=== PATIENT | female | born 1975 | race Caucasian/White ===

== ENCOUNTER → 2020-10-03 09:22 | Outpatient (BNVA) | payer BC, SELFPAY | PROVIDERS: PCP Internal Medicine; Referring Provider Internal Medicine; Visit Provider Hospitalist | DX: Z76.89 Persons encountering health services in other specified circumstances (principal) ==

== ENCOUNTER → 2021-03-01 09:47 | Outpatient (BNVA) | payer BC, SELFPAY | PROVIDERS: PCP Internal Medicine; Visit Provider Hospitalist ==

== ENCOUNTER 2021-04-21 13:12 | Outpatient (REF) | payer BC, SELFPAY ==
[2021-04-21 14:24] LABS: MANUAL DIFF FLAG NO
[2021-04-21 14:31] LABS: Basophils Percent Auto 0.5 % (0-2); Eosinophils Absolute Auto 0.2 X10*3/uL (0.0-0.4); Eosinophils Percent Auto 2.4 % (0-4); Hematocrit 37.9 % (37-47); Hemoglobin 12.8 g/dl (12.0-16.0); Imm Gran Abs Auto 0.01 X10*3/uL (0.00-0.03); Imm Gran Pct Auto 0.2 % (0.0-0.4); Lymphocytes Absolute Auto 1.6 X10*3/uL (1.2-4.9); Lymphocytes Percent Auto 25.3 % (20-40); Mean Corpuscular HGB Conc 33.8 g/dl (31.0-35.0); Mean Corpuscular Hemoglobin 30.3 pg (27.0-33.0); Mean Corpuscular Volume 89.6 fL (80-98); Mean Platelet Volume 9.4 fL (9.4-12.3); Monocytes Absolute Auto 0.5 X10*3/uL (0.1-1.2); Monocytes Percent Auto 8.2 % (2-11); Neutrophils Absolute Auto 4.1 X10*3/uL (2.0-8.3); Neutrophils Percent Auto 63.4 % (45-73); Platelet Count 310 X10*3/uL (160-400); Red Blood Count 4.23 X10*6/uL (4.20-5.50); Red Cell Distribution Width 12.8 % (11.0-16.0); White Blood Count 6.4 X10*3/uL (4.8-10.8)
[2021-04-21 14:49] LABS: Anion Gap 15 (12-20); Blood Urea Nitrogen 14 mg/dL (9-16); Carbon Dioxide 24 mmol/L (22-29); Chloride 104 mmol/L (96-108); Estimated Glomerular Filt Rate > 60; Glucose Random 99 mg/dL (60-115); Potassium 3.7 mmol/L (3.3-5.1); Sodium 139 mmol/L (135-145)
[2021-04-21 15:16] LABS: Erythrocyte Sedimentation Rate 6 MM/HR (0-20)
[2021-04-26 04:26] LABS: Immunoglobulin E 962 kU/L (<OR=114)
== END 2021-04-21 13:13 | disposition home or self-care (01) ==
LOC: HO.LAB 13:12
PROVIDERS: PCP Internal Medicine; Visit Provider Hospitalist
DX: J45.50 Severe persistent asthma, uncomplicated (principal); R91.1 Solitary pulmonary nodule; L40.9 Psoriasis, unspecified; D84.9 Immunodeficiency, unspecified
CPT/HCPCS: 36415; 80048; 82785; 85025; 85652; 86769

== ENCOUNTER → 2021-07-10 15:34 | Outpatient (BNVA) | payer BC, SELFPAY | PROVIDERS: PCP Internal Medicine; Visit Provider Hospitalist ==

== ENCOUNTER → 2021-11-06 15:38 | Outpatient (BNVA) | payer BC, SELFPAY | PROVIDERS: PCP Internal Medicine; Visit Provider Hospitalist ==

== ENCOUNTER 2021-12-29 15:56 | Outpatient (REF) | payer BC, SELFPAY ==
--- NOTE | 2021-12-29 17:12 | PFT_ITS ---
Forced vital capacity 98%, FEV1 95%, FEV1/FVC ratio 77, RCL19-30 is 76%, and MVV 93%. All these values are normal, post bronchodilator therapy no significant change. Total lung capacity 93%. Residual volume is 73%. Diffusion capacity 89%. CONCLUSION: Normal pulmonary function tests. No evidence of obstructive or restrictive pulmonary disorder and no significant response to bronchodilator therapy. MD CARMELO Bassett/CRISSY / [id number]
== END 2021-12-29 15:57 | disposition home or self-care (01) ==
LOC: HO.RESP 15:56
PROVIDERS: PCP Internal Medicine; Visit Provider Hospitalist
DX: R06.00 Dyspnea, unspecified (principal); J45.50 Severe persistent asthma, uncomplicated
CPT/HCPCS: 94060; 94727; 94729

== ENCOUNTER → 2022-01-18 15:53 | Outpatient (BNVA) | payer BC, SELFPAY | PROVIDERS: PCP Internal Medicine; Visit Provider Hospitalist | DX: Z13.89 Encounter for screening for other disorder (principal) ==

== ENCOUNTER → 2023-04-22 14:32 | Outpatient (BNVA) | payer BC, SELFPAY | PROVIDERS: PCP Internal Medicine; Visit Provider Hospitalist ==

== ENCOUNTER 2024-05-18 14:59 | Outpatient (AMB) | payer BC, SELFPAY ==
--- NOTE | 2024-05-18 15:22 | MHC.OFFVIS ---
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 She also has psoriatic arthritis. She has been on multiple medications including methotrexate. But, then decided to come off it due to the abnormal findings in her lungs and also with the family history of pulmonary fibrosis. She continues to have dyspnea on exertion. Moderate in amount. She went to see her primary care doctor and added a long-acting muscarinic antagonist. This has not been helpful yet. She has also been complaining of pleuritic chest discomfort primarily in the left chest area. It is pleuritic in nature moderate in amount. She denies any blood clots history alleged trauma to [place]. Denies any swelling of the legs. We did review her CT scan of the chest that she had in June at [facility] and with his compared to her CT scan from) from 6 months prior. No significant changes in the pulmonary nodule or in the sub solid nodular density found in the left upper lobe. She also had blood work done with a significantly elevated IgE level of about 900. She is not aware of any significant allergy symptoms. However, this may be causing intermittent asthma. 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 She does episodes of exacerbations. She does have a history of psoriatic arthritis. She may be a good candidate for PD4 inhibitor. Recently she did have an echocardiogram which is reassuring with normal RV function and normal PA pressures. Minimal degree of diastolic dysfunction. 10/03/2020 the patient has a telephone visit. She continues to have some difficulty with her breathing and chest tightness. Does not feel like she is getting any significant improvement from the Xolair. Her IgE had been elevated in the past. I do think Dupixent may be a good option for her specially when she can just herself at home and minimize her exposures to COVID-19. She will talk to her stone rigger about this. In the meantime she has underlying pulmonary nodules. We did request a CT scan of the chest but it was denied from her insurance company because was requested to [place]. Therefore will request another CT scan for 3 months from now. Hopefully by then the pandemic would be better. In the meantime she is going to continue with current respiratory regimen. 03/01/2021 the patient has a telephone visit. Since we last spoke the patient has been having for worsening respiratory symptoms consistent with her asthma. She subsequently stop the Xolair because the monthly Xolair did not seem to be effective for her. In addition to that she was approved for Dupixent. She did get the 1st loading dose of Dupixent and she was very hopeful. But, because she has been on other immunosuppressive agents she did back some was stop. Now, her allergy office is doing additional prior approval stay to have her go back on Dupixent. She continues on the Symbicort. In addition to that she has been using her allergy medication. She has required her rescue inhaler regularly almost daily. At this point will try to optimize her respiratory therapy placing her breztri and also will plan to repeat blood work. The patient has gained some weight over this pandemic year and I did explain to her that if she cannot go back on the Dupixent then we should try to maximize her Xolair and hopefully in that case use it every 2 weeks instead of her before. She did have a CT scan of the chest and that we personally reviewed. Her lungs appear to be healthy appearing. She does have a small pulmonary nodule that is calcified in the right upper lung zone. Otherwise she has no other abnormalities noted which is reassuring. Slight dilation and thickening of the airways suggesting some degree of bronchitis. But very minimal. She does have a history of kidney stones and she does have bilateral nephrolithiasis noted. She also has a kidney cyst. Explained to her that CT scan is not a good way to visualize the cysts on her kidneys she should follow up with her specialists regarding a renal ultrasound. 11/06/2021 the patient is here for a pulmonary follow-up visit. Overall the patient has been doing a lot better. 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 She had to call the crisis center because of significant anxiety. She was evaluated and treated both with psychotherapy in medications. The patient finished a partial hospitalization and responded very well to therapy. 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 We did talk about the respirator that she bought. the patient continues to Symbicort. She was started on Spiriva and seems to be tolerating it much better. She continues on Dupixent every 2 weeks. The area switch to getting the injections are painful. However, it is providing some relief. Her psoriasis is also better. 04/22/2023 the patient is here for pulmonary follow-up visit. The patient overall has been doing well. She has not had any recent flare-ups from the asthma. 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 She has been still protecting herself with a mask covering. The patient has not had to use her rescue inhaler. She seems to have responded very well to the Dupixent injections. No need for her rescue inhaler and she continues use her maintenance inhalers as prescribed which include Spiriva and Symbicort. She is in immunosuppressant therapy for her other medical elements. She is up-to-date with her vaccines. Will follow-up in a year's time unless any new issues arise. 05/18/2024 the patient is here for a pulmonary follow-up visit. The patient still complaining of dyspnea on exertion. Although does not feel like his her asthma. she does stay active she goes hiking. A lot of times when she is going up an incline. Moderate severity. She was evaluated from Cardiology and she had an echocardiogram back in July 13 demonstrating a ASD. Was small. I did have a rvjhn-uv-cugt shunt. She does have some minimal clubbing. No evidence of any hypoxia when ambulating. She is going to have a repeat echocardiogram ordered by her primary care doctor. She is also having daytime drowsiness. There is a question of sleep apnea. She was order a sleep study which will be done at [facility] as well. On exam she does have some minimal wheezing. We did talk about the importance of using her respiratory inhalers. Will going to go ahead and maximize her respiratory therapy from Symbicort to breztri. Will also request a cardiopulmonary exercise tolerance test to better address her dyspnea symptoms specially with his cardiac issue going on. Will plan to do that at [facility]. In the meantime we are going to maximize respiratory therapy and she will follow-up with her primary care doctor. I did advise her to make sure she follows up with Cardiology specially with her abnormal findings. [facility] Medical History (Updated 05/18/24 @ 15:42 by Holden Antoine MD) ASD (atrial septal defect) Psoriatic arthritis Immunocompromised patient Pulmonary nodule Psoriasis Asthma Social History (Updated 11/06/21 @ 15:56 by DARRELL Jc) Patient Tobacco Use Status: Former Tobacco user Tobacco use type: Cigarette Years Smoked: 20 years Review of Systems Const Denies fever(s) and Denies night sweats Eyes Denies change in vision ENT Denies change in voice, Reports dizziness, Denies lip swelling, Denies mouth pain, Reports nasal congestion, Reports nasal discharge and Denies tongue swelling Card Denies chest pain, Denies dyspnea and Reports dyspnea on exertion Resp Reports cough, Denies dyspnea, Reports dyspnea on exertion and Denies wheezing GI Denies abdominal pain Musc Denies no additional complaints, Reports back pain and Reports myalgias Neuro Denies Neuro-related abnormal movements and Reports dizziness Psych Denies no additional complaints Rodolfo/Lymph Denies easy bleeding and Denies lymphadenopathy Aller/Immun Denies lip swelling, Denies tongue swelling and Denies wheezing Physical Exam Vital Signs: Last Vital Signs Pulse 61 05/18/24 15:24 Pulse Ox 97 05/18/24 15:24 Oxygen Delivery Method Room Air 05/18/24 15:24 BMI result Body Mass Index 28.4 Const General: alert Neck Neck: Yes normal visual inspection, Yes full ROM and Yes no lymphadenopathy Chest Chest palpation & inspection: normal inspection of the chest Resp Auscultation: no rales, no rhonchi, wheezes and diminished lung sounds Cardio Rate: regular rate Rhythm: regular rhythm Heart sounds: S1 normal heart sound present and S2 normal heart sound present GI Palpation (GI): Soft to palpation and nontender Auscultation: normal bowel sounds Skin General skin exam: rashes and/or lesions noted Extrem General: Yes clubbing, No cyanosis and No edema Assessment & Plan Assessment & Plan (1) Pulmonary nodule: Code(s): R91.1 - Solitary pulmonary nodule Category: Medical (2) Asthma: Code(s): J45.909 - Unspecified asthma, uncomplicated Category: Medical Qualifiers: Asthma complication type: uncomplicated Asthma persistence: persistent Asthma severity: moderate Qualified Code(s): J45.40 - Moderate persistent asthma, uncomplicated (3) ASD (atrial septal defect): Code(s): Q21.10 - Atrial septal defect, unspecified Category: Medical Plan stop Symbicort start Breztri stopped Dupixent ERVIN as needed CPET at [facility] F/U 4-6 months Orders: Orders CA cardiopulmonary stress test Today R06.00 - Dyspnea, unspecified Medications: New irylrxorwp-tiyyzbjg-afkruafslr 160-9-4.8 mcg/actuation (Breztri Aerosphere) 2 inhalations inhalation BID 30 days 10.7 grams 11RF Coding Level of Care Code Est Pt Level 4 (55079) Diagnoses Pulmonary nodule R91.1 Moderate persistent asthma without complication J45.40 Asthma complication type: uncomplicated Asthma persistence: persistent Asthma severity: moderate ASD (atrial septal defect) Q21.10 Time Spent (min) 17
[2024-05-18 15:24] VITALS: PULSE 61; O2SAT 97; BMI 28.4
== END 2024-05-18 16:01 | disposition home or self-care (01) ==
PROVIDERS: PCP Internal Medicine; Visit Provider Hospitalist
DX: R91.1 Solitary pulmonary nodule (principal); J45.40 Moderate persistent asthma, uncomplicated; Q21.10 Atrial septal defect, unspecified
CPT/HCPCS: 99214

== ENCOUNTER → 2024-05-18 14:59 | Outpatient (BNVA) | payer BC, SELFPAY | PROVIDERS: PCP Internal Medicine; Visit Provider Hospitalist ==

== ENCOUNTER 2024-11-02 15:40 | Outpatient (AMB) | payer BC, SELFPAY ==
[2024-11-02 15:42] VITALS: BP 118/78; PULSE 58; O2SAT 99; BMI 34.4
--- NOTE | 2024-11-02 15:42 | A.OFFVIS_ITS ---
Vital Signs 11/02/24 15:42 Height 5 ft 4 in Weight 200 lb 9.93 oz BMI 34.4 BP 118/78 Blood Pressure Location Rt brachial Position Sitting Pulse 58 Pulse Source Pulse Oximeter Pulse Oximetry (%) 99 Oxygen Delivery Method Room Air Intake Visit Reasons: copd Allergies No Known Allergies Allergy (Verified 11/02/24 15:44) HPI Comments Details: The patient is a 49 y/o womanwith a history of asthma in addition to pulmonary nodules. She also has psoriatic arthritis. She has been on multiple medications including methotrexate. But, then decided to come off it due to the abnormal findings in her lungs and also with the family history of pulmonary fibrosis. She continues to have dyspnea on exertion. Moderate in amount. She went to see her primary care doctor and added a long-acting muscarinic antagonist. This has not been helpful yet. She has also been complaining of pleuritic chest discomfort primarily in the left chest area. It is pleuritic in nature moderate in amount. She denies any blood clots history alleged trauma to [place]. Denies any swelling of the legs. We did review her CT scan of the chest that she had in June at [facility] and with his compared to her CT scan from) from 6 months prior. No significant changes in the pulmonary nodule or in the sub solid nodular density found in the left upper lobe. She also had blood work done with a significantly elevated IgE level of about 900. She is not aware of any significant allergy symptoms. However, this may be causing intermittent asthma. 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 She does episodes of exacerbations. She does have a history of psoriatic arthritis. She may be a good candidate for PD4 inhibitor. Recently she did have an echocardiogram which is reassuring with normal RV function and normal PA pressures. Minimal degree of diastolic dysfunction. 10/03/2020 the patient has a telephone visit. She continues to have some difficulty with her breathing and chest tightness. Does not feel like she is getting any significant improvement from the Xolair. Her IgE had been elevated in the past. I do think Dupixent may be a good option for her specially when she can just herself at home and minimize her exposures to COVID-19. 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 In the meantime she has underlying pulmonary nodules. We did request a CT scan of the chest but it was denied from her insurance company because was requested to [place]. Therefore will request another CT scan for 3 months from now. Hopefully by then the pandemic would be better. In the meantime she is going to continue with current respiratory regimen. 03/01/2021 the patient has a telephone visit. Since we last spoke the patient has been having for worsening respiratory symptoms consistent with her asthma. She subsequently stop the Xolair because the monthly Xolair did not seem to be effective for her. In addition to that she was approved for Dupixent. She did get the 1st loading dose of Dupixent and she was very hopeful. But, because she has been on other immunosuppressive agents she did back some was stop. Now, her allergy office is doing additional prior approval stay to have her go back on Dupixent. She continues on the Symbicort. In addition to that she has been using her allergy medication. She has required her rescue inhaler regularly almost daily. At this point will try to optimize her respiratory therapy placing her breztri and also will plan to repeat blood work. The patient has gained some weight over this pandemic year and I did explain to her that if she cannot go back on the Dupixent then we should try to maximize her Xolair and hopefully in that case use it every 2 weeks instead of her before. She did have a CT scan of the chest and that we personally reviewed. Her lungs appear to be healthy appearing. She does have a small pulmonary nodule that is calcified in the right upper lung zone. Otherwise she has no other abnormalities noted which is reassuring. Slight dilation and thickening of the airways suggesting some degree of bronchitis. But very minimal. She does have a history of kidney stones and she does have bilateral nephrolithiasis noted. She also has a kidney cyst. Explained to her that CT scan is not a good way to visualize the cysts on her kidneys she should follow up with her specialists regarding a renal ultrasound. 11/06/2021 the patient is here for a pulmonary follow-up visit. Overall the patient has been doing a lot better. 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 She had to call the crisis center because of significant anxiety. She was evaluated and treated both with psychotherapy in medications. The patient finished a partial hospitalization and responded very well to therapy. 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 We did talk about the respirator that she bought. the patient co ntinues to Symbicort. She was started on Spiriva and seems to be tolerating it much better. She continues on Dupixent every 2 weeks. The area switch to getting the injections are painful. However, it is providing some relief. Her psoriasis is also better. 04/22/2023 the patient is here for pulmonary follow-up visit. The patient overall has been doing well. She has not had any recent flare-ups from the asthma. 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 She has been still protecting herself with a mask covering. The patient has not had to use her rescue inhaler. She seems to have responded very well to the Dupixent injections. No need for her rescue inhaler and she continues use her maintenance inhalers as prescribed which include Spiriva and Symbicort. She is in immunosuppressant therapy for her other medical elements. She is up-to-date with her vaccines. Will follow-up in a year's time unless any new issues arise. 05/18/2024 the patient is here for a pulmonary follow-up visit. The patient still complaining of dyspnea on exertion. Although does not feel like his her asthma. she does stay active she goes hiking. A lot of times when she is going up an incline. Moderate severity. She was evaluated from Cardiology and she had an echocardiogram back in July 13 demonstrating a ASD. Was small. I did have a atklc-ee-nphh shunt. She does have some minimal clubbing. No evidence of any hypoxia when ambulating. She is going to have a repeat echocardiogram ordered by her primary care doctor. She is also having daytime drowsiness. There is a question of sleep apnea. She was order a sleep study which will be done at [facility] as well. On exam she does have some minimal wheezing. We did talk about the importance of using her respiratory inhalers. Will going to go ahead and maximize her respiratory therapy from Symbicort to breztri. Will also request a cardiopulmonary exercise tolerance test to better address her dyspnea symptoms specially with his cardiac issue going on. Will plan to do that at [facility]. In the meantime we are going to maximize respiratory therapy and she will follow-up with her primary care doctor. I did advise her to make sure she follows up with Cardiology specially with her abnormal findings. 11/02/2024 the patient is here for a pulmonary follow-up visit. She continues to have daytime drowsiness. Her [place] score is still elevated 09/13. She did have sleep study over the summer demonstrating mild sleep apnea. In view of her cardiovascular risk factors and her daytime drowsiness the patient needs to start CPAP therapy at this time. Will request a CPAP to be provided by a local [employer] company, [employer]. In the meantime she also did follow- up with Cardiology and she had closure of her PFO. After she started developing some palpitations and some bradycardia. Cardiology is following closely. She did have a repeat echocardiogram with a bubble study and did demonstrate some bubbles getting throat with Valsalva with not at rest. She will talk to Cardiology about the meaning of this test and the results. In the meantime she was supposed to undergo a cardiopulmonary exercise tolerance test. However, she was sick and she was not able to completed. She had to reschedule. At this point though because she is having active cardiac issues and she needs to start CPAP I will have her focus on that and then when she returns we can look into repeating her CPAP study done. She will continue to use her rescue inhaler as needed. She could not get the Breztri covered. I will give her a prescription for airsupra that she can use as needed [facility] Medical History (Updated 11/02/24 @ 21:39 by Holden Antoine MD) ASD (atrial septal defect) Psoriatic arthritis Immunocompromised patient Pulmonary nodule Psoriasis Asthma Social History Patient Tobacco Use Status: Former Tobacco user Tobacco use type: Cigarette Years Smoked: 20 years Review of Systems Const Reports daytime sleepiness, Denies fever(s), Reports snoring and Reports weight gain Eyes Denies change in vision ENT Denies change in voice, Reports dizziness, Denies lip swelling, Denies mouth pain, Reports nasal congestion, Reports nasal discharge and Denies tongue swelling Card Denies chest pain, Reports palpitations, Denies dyspnea and Reports dyspnea on exertion Resp Reports cough, Denies dyspnea, Reports dyspnea on exertion, Reports snoring and Denies wheezing GI Denies abdominal pain Musc Denies no additional complaints, Reports back pain and Reports myalgias Neuro Denies Neuro-related abnormal movements and Reports dizziness Psych Denies no additional complaints Endo Reports palpitations Rodolfo/Lymph Denies easy bleeding and Denies lymphadenopathy Aller/Immun Denies lip swelling, Denies tongue swelling and Denies wheezing Physical Exam Vital Signs: Last Vital Signs Pulse 58 11/02/24 15:42 BP 118/78 11/02/24 15:42 Pulse Ox 99 11/02/24 15:42 Oxygen Delivery Method Room Air 11/02/24 15:42 BMI result Body Mass Index 34.4 Const General: alert Neck Neck: Yes normal visual inspection, Yes full ROM and Yes no lymphadenopathy Chest Chest palpation & inspection: normal inspection of the chest Resp Auscultation: no rales, no rhonchi and diminished lung sounds Cardio Rate: regular rate Rhythm: regular rhythm Heart sounds: S1 normal heart sound present and S2 normal heart sound present GI Palpation (GI): Soft to palpation and nontender Auscultation: normal bowel sounds Skin General skin exam: rashes and/or lesions noted Extrem General: Yes clubbing, No cyanosis and No edema Assessment & Plan Assessment & Plan (1) Pulmonary nodule: Code(s): R91.1 - Solitary pulmonary nodule Category: Medical (2) Asthma: Code(s): J45.909 - Unspecified asthma, uncomplicated Category: Medical Qualifiers: Asthma complication type: uncomplicated Asthma persistence: persistent Asthma severity: moderate Qualified Code(s): J45.40 - Moderate persistent asthma, uncomplicated (3) ASD (atrial septal defect): Code(s): Q21.10 - Atrial septal defect, unspecified Category: Medical (4) HARLEEN (obstructive sleep apnea): Code(s): G47.33 - Obstructive sleep apnea (adult) (pediatric) Category: Medical Plan stopped Symbicort start Airsupra stopped Dupixent ERVIN as needed start APAP therapy for HARLEEN F/U with cardiology with palpitations CPET at [facility] once better F/U 3-4 months Medications: New benzonatate 200 mg PO BID PRN 60 caps 0RF cough 30 days albuterol-budesonide 90-80 mcg/actuation (Airsupra) 2 inhalations inhalation BID PRN 10.7 grams 5RF shortness of breath 30 days Coding Level of Care Code Est Pt Level 4 (15222) Diagnoses Pulmonary nodule R91.1 Moderate persistent asthma without complication J45.40 Asthma complication type: uncomplicated Asthma persistence: persistent Asthma severity: moderate ASD (atrial septal defect) Q21.10 HARLEEN (obstructive sleep apnea) G47.33 Time Spent (min) 17
--- OUTSIDE RECORDS SUMMARY | 2024-11-02 19:40 | XMS_ITS | Data Portability ---
Author Organization [place] - [facility],, LOUANN DONNELLY MD Address [address] [address] Care Team Providers Care News Assistant Name Role Phone FLORIAN THOMAS Primary Care Provider Assessment No assessment recorded. Plan of Treatment Reminders Order Date Submit Date Provider Last Modified By Organization Details Last Modified Time Details Appointments ANNUAL EXAM 2024 03:20P M Louann Donnelly MD Not available Not available Not available Lab pap test, thinprep , cervical 2018 019 [email or web address] [facility], Cytopathology Service, [address] [place], [address], 08/19/2019 07:33:56 fecal occult blood, stool 2018 019 MICHAELA In-Office Order, Internal Use Only DO Not Attach Compendium DO Not Attach Compendium, Do Not Delete/merge, [id number] 08/11/2019 16:14:35 pap test, thinprep , cervical 2020 021 [email or web address] [facility], Cytopathology Service, [address] [place], [address], 03/21/2021 07:34:46 Chlamydi a trachoma tis+Neis seria gonorrho eae DNA, unspecif ied specimen 2021 022 [email or web address] [facility], [address] [place], [address], 01/23/2022 07:43:14 pap test, thinprep , cervical 2021 022 [email or web address] [facility], Cytopathology Service, [address] [place], [address], 04/27/2022 08:24:11 fecal occult blood, stool 2021 022 [email or web address] 1 In-Office Order, Internal Use Only DO Not Attach Compendium DO Not Attach Compendium, Do Not Delete/merge, [id number] 04/12/2022 15:56:12 urinalys is, dipstick 2022 023 [email or web address] 1 In-Office Order, Internal Use Only DO Not Attach Compendium DO Not Attach Compendium, Do Not Delete/merge, [id number] 08/09/2023 15:54:39 culture, urine 2022 023 [facility], [address] [place], [address], 08/11/2023 06:30:12 pap test, thinprep , cervical 2022 023 [email or web address] [facility], [address] [place], [address], 08/23/2023 07:37:57 fecal occult blood, stool 2022 023 [email or web address] 1 In-Office Order, Internal Use Only DO Not Attach Compendium DO Not Attach Compendium, Do Not Delete/merge, [id number] 08/09/2023 15:54:41 Referral None recorded . Procedures None recorded . Surgeries None recorded . Imaging MAMMO, screenin g, digital, bilatera l 2018 019 [email or web address] [facility] ([facility]), [address] [place], [address], 07/31/2021 07:16:46 MAMMO, screenin g, digital, bilatera l 2020 021 [facility] ([facility]), [address] [place], [address], 03/06/2022 08:21:42 MAMMO, screenin g, digital, bilatera l 2021 022 [facility]), [address] [place], [address], 03/07/2023 09:03:30 MAMMO, screenin g, digital, bilatera l - Breast Aspirati on and/or Biopsy if needed 2022 023 [facility]), [address] [place], [address], 06/03/2024 15:57:28 Medication Orders ondanset nithin 8 mg disinteg rating tablet 2021 022 [email or web address] 1 [id number], [address] [place], [address], 01/16/2022 15:28:00 Patient TargetsNo targets recorded. Patient Instructions Encounter Date Encounter Id Patient Instructions Last Modified By Organization Details Last Modified Time 08/11/2019 [id number] She is here for annual exam, is using a walker for her psoriatic arthritis, she may also be developing idiopathic pulmonary fibrosis. She went off methotrexate because she was worried it might be damaging her lungs. 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 Menses are regular/heavy, has vasectomy. Note from 2018: She is here for annual exam, is doing well. 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 She is wheelchair confined due to her psoriatic arthropathy. She went off Embrel and changed to a pill, but it is not working well for her yet. She failed Lucy also. She may consider Remicade. She appears to be doing well. She is advised to get 1500 mg of calcium daily into her diet and supplements combined. There is a health benefit with adequate vitamin D supplementation to at least 400 units daily, daily aerobic exercise of 30 minutes, and stress reduction. Monthly self breast exam was taught, and stressed, and is advised to call if she discovers any new mass in the breast. Seat belt use for herself and passengers are advised. There are significant health benefits of becoming and remainig fit, with an optimal BMI. There is a potential reduction in chronic discomfort, diminished risks of hypertension, diabetes, and heart disease with the proper weight management. With a recommended BMI there can be improved mobility as she ages. Strategies to reach and maintain her target weight were discussed in detail. 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 Note from 2019: She is here for annual exam, is using a walker for her psoriatic arthritis, she may also be developing idiopathic pulmonary fibrosis. She went off methotrexate because she was worried it might be damaging her lungs. 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 Menses are regular/heavy, has vasectomy. She appears to be doing well. She is advised to get 1500 mg of calcium daily into her diet and supplements combined. We discussed the benefits of adequate vitamin D supplementation to at least 400 units daily, daily aerobic exercise of 30 minutes, and stress reduction. Monthly self breast exam was taught, and stressed, and is advised to call if she discovers any new mass in the breast. Not available 03/13/2021 09:19:09 01/16/2022 [id number] nausea and vomit ing: care instructions Not available 01/16/2022 14:20:42 diverticulitis: care instructions Not available 01/16/2022 15:06:50 learning about diverticulosis and diverticulitis Not available 01/16/2022 15:06:50 She is here for ED follow up. She went to the [facility] ED yesterday due to right upper flank pain. which had been ongoing for 4 weeks. She had gone to a walk-in clinic last week, was diagnosed with a UTI, it cultured E Coli 50 - 100K E Coli, treated with Bactrim for 5 days, the culture was sensitive to the Bactrim. Her pain did not improve with the treatment. She has also had profound nausea over these 4 weeks,, and has been feeling under the weather. She had hoped she would improve after the Bactrim, but she did not. Yesterday at the ED, A non-contrast CT was done. It showed bilateral non-obstructing stones up to 6 mm. No hydronephrosis. No suspicious masses. They noted the diagnosis was related to the renal stones, and felt it would pass spontaneously. they sent her home. Her test, labs, and CBC were fine. She is immunocompromised due to her Cosentyx. 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 She is here because we could fit her in today for a same day visit. She cannot get in to see her urologist until 01/24/22. A GC/chlamydia genprobe is taken, to be complete, though she has no evidence of PID on exam or CT scan. The ovaries on CT were not abnormal. It does not appear that she has a director trust issue as the etiology of her nausea and pain for 4 weeks. However, she has a pelvic exam consistent with possible diverticulitis. She did have diverticulosis diagnosed previously, she notes. Her CT did not have contrast, I'm not in that field so do not know if a negative CT without contrast is enough to rule out diverticulitis. She is advised to contact her urologist and try to move up her appointment. Also she will contact her PCP to see if they can get her in. She is definitely not herself. She never looks this unkempt, and fatigued. It is important to get to the bottom of her diagnosis and initiate proper treatment, especially in light of her being immunosupressed. She understands and agrees. In the meanwhile I offered a pelvic sonogram just to look better at the ovaries but she declines as the CT was fine. I will call in rx for Lyla DUGAN just to help with her intractable nausea. I cannot explain the right flank pain, however she may have diverticulitis by her history and exam. Face to face discussion 60 minutes Not available 01/16/2022 15:28:15 04/12/2022 [id number] learning about healthy weight Not available 04/12/2022 15:56:12 She is here for annual exam, is doing well. Menses every 1 to 4 months, no significant vasomotor symptoms. s/p vasectomy. 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 ___ She appears to be doing well. She is advised to get 1500 mg of calcium daily into her diet and supplements combined. We discussed the benefits of adequate vitamin D supplementation to at least 400 units daily, daily aerobic exercise of 30 minutes, and stress reduction. Monthly self breast exam was taught, and stressed, and is advised to call if she discovers any new mass in the breast. Not available 04/12/2022 15:58:13 08/09/2023 [id number] urinary tract infection in women information Not available 08/09/2023 15:54:39 learning about healthy weight Not available 08/09/2023 15:54:39 She is here for annual, doing well, menses are every few months, only mild vasomotor symptoms. Her psoriatic arthritis is under control at this time. She is walking without a walker. She had been in a wheelchair in 2017 ! vasectomy. She haw mild dysuria. Note from 2021: She is here for annual exam, is doing well. Menses every 1 to 4 months, no significant vasomotor symptoms. s/p vasectomy. 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 She appears to be doing well. Urine dip not suggestive of UTI, check culture. Perimenopause discussed. Monthly self breast exam was taught, and stressed, and is advised to call if she discovers any new mass in the breast. [email or web address] Not available 08/09/2023 15:55:27 Reason for Referral None Reported. Results Created Date Observation Date Name Description Value Unit Range Abnormal Flag Note LastModifiedBy Organization Detail LastModifiedTime 08/11/20 19 08/11/2019 pap, LB [id number] ThinP rep Pap, Image d: NEGAT GAYLA FOR SQUAM OUS INTRA EPITH ELIAL CLAUDIA Jones AND EMMA HALE . Parak erato sis is prese nt. Arminda Echavarria , LEANDRO( CP) (Case Marvel aftab 08 13 2019) Krystyna Lo M.D. , Patho logis t (Case elect mery ross june d 08 14 2019) ADEQU ACY: Satis facto ry Endoc ervic al/tr ansfo rmati on zone compo nent prese nt. SOURC E: ThinP rep Pap HPV IF ASCUS , Cervi shaista, Image d CLINI SHAISTA INFOR MATIO N: HPV If Diagn osis of ASCUS . LPS 8 NEG [Z12. 4, Z01.4 19] Not Available [facility], Cytopathology Service [address] [place], [address], 08/17/2019 15:59:04 08/11/20 19 08/11/2019 fecal occul t blood , stool Occult Blood negati ve Not Available In-Office Order Internal Use Only DO Not Attach Compendium DO Not Attach Compendium, Do Not Delete/merge, [id number] 08/11/2019 15:33:18 03/13/20 21 03/13/2021 pap test, thinp rep, cervi shaista [id number] ThinP rep Pap, Image d: NEGAT GAYLA FOR SQUAM OUS INTRA EPITH ELIAL CLAUDIA Jones AND EMMA HALE . Inna Baldwin a , [place]( CP) (Case elect mery vandana june d 03 15 2021) ADEQU ACY: Satis facto ry Endoc ervic al/tr ansfo rmati on zone compo nent prese nt. SOURC E: ThinP rep Pap HPV IF ASCUS , Cervi shaista, Image d CLINI SHAISTA INFOR MATIO N: HPV If Diagn osis of ASCUS . LPS 08/11 NEG [Z12. 4. Z01.4 19] Not Available [facility], Cytopathology Service [address] [place], [address], 03/16/2021 08:02:01 01/17/20 22 01/16/2022 CHLAM YDIA DNA SWAB comments [facility], a mem[facility] r of [facility] [address] [address] Medic al Dire evangelist jones MD Not Available [facility] [address] [place] [address], [address], 01/17/2022 14:06:01 01/17/20 22 01/16/2022 CHLAM YDIA DNA SWAB chlamydia DNA swab NEGATI VE negati ve Not Available [facility] [address] [place] [address], [address], 01/17/2022 14:06:01 01/17/20 22 01/16/2022 GC DNA SWAB comments [facility], a [facility] [address] [address] Medic al Direc evangelist jones MD Not Available [facility] [address] [place], [address], 01/17/2022 14:06:05 01/17/20 22 01/16/2022 GC DNA SWAB GC DNA swab NEGATI VE negati ve Not Available [facility] [address] [place], [address], 01/17/2022 14:06:05 04/12/20 22 04/12/2022 PAP1C ASE [id number] ThinP rep Pap, Image d: NEGAT GAYLA FOR SQUAM OUS INTRA EPITH ELIAL CLAUDIA Jones AND EMMA HALE . Dorys Maravilla [facility] , [place]( CP) (Case elect mery anivalaubrey june d 04 20 2022) ADEQU ACY: Satis facto ry Endoc ervic al/tr ansfo rmati on zone compo nent prese nt. SOURC E: ThinP rep Pap HPV IF Ascus : Refle x 16 and 18, Cervi shaista, Image d CLINI SHAISTA INFOR MATIO N: HPV If Diagn osis of ASCUS . LPS NEG, Z01.4 19 Not Available [facility], Cytopathology Service [address] [place], [address], 04/24/2022 09:21:31 04/12/20 22 04/12/2022 fecal occul t blood , stool Occult Blood negati ve Not Available In-Office Order Internal Use Only DO Not Attach Compendium DO Not Attach Compendium, Do Not Delete/merge, [id number] 04/12/2022 14:39:40 08/09/20 23 08/09/2023 URINE CULTU RE specimen description URINE Not Available [facility] [address] [place], [address], 08/11/2023 06:30:11 08/09/20 23 08/09/2023 URINE CULTU RE special requests NONE Not Available [facility] [address] [place], [address], 08/11/2023 06:30:11 08/09/20 23 08/11/2023 URINE CULTU RE culture Mixed bacter ial axel, indica tive of urogen ital contam inatio n. Not Available [facility] [address] [place], [address], 08/11/2023 06:30:11 08/09/20 23 08/11/2023 URINE CULTU RE report status FINAL 2022 Not Available [facility] [address] [place], [address], 08/11/2023 06:30:11 08/09/2008/09/2023 [facility] CYTOL OGY results Patidiego nt Name: TEENA ANDINO nt : 1974 (Age: 48) Lab Acces tana #: [id number] Colle ction Date: 08/09 Acces tana Date: 08/09 Sign Out Date: 08/16 Tissu e Sourc e: 1: THINP REP SEED PELLETER PAP TEST, CERVI SHAISAT: Final Diagn osis: NEGAT GAYLA FOR INTRA EPITH ELIAL LESIO N OR MALIG GEOFFREY . Satis facto ry for evalu ation . Endoc ervic al/tr ansfo rmati on zone prese nt. Clini shaista Histo ry: Date of Last Menst rual Perio d: not avail able Menst rual Histo ry: not avail able Contr acept gayla Histo ry: not avail able Ancil eunice Testi ng: HPV (ASCU S) Case image d by the ThinP rep Imagi ng Syste m with catia christopher or eleanor merrill Perfo rmed at [facility] ate Refer en[facility], [address] [place] Clini shaista Histo ry (othe r): Z01.4 19, routi ne scree n, LPS neg Phone #: [phone], On-Ca ll Patho logis t: [id number] Not Available [facility] [address], [place], [address], 08/16/2023 10:21:46 08/09/2008/09/2023 fecal occul t blood , stool Occult Blood negati ve Not Available In-Office Order Internal Use Only DO Not Attach Compendium DO Not Attach Compendium, Do Not Delete/merge, [id number] 08/09/2023 15:18:21 08/09/2008/09/2023 urina lysis , dipst ick GLU Negati ve Not Available In-Office Order Internal Use Only DO Not Attach Compendium DO Not Attach Compendium, Do Not Delete/merge, [id number] 08/09/2023 15:34:18 08/09/2008/09/2023 urina lysis , dipst ick IZZY Small Not Available In-Office Order Internal Use Only DO Not Attach Compendium DO Not Attach Compendium, Do Not Delete/merge, [id number] 08/09/2023 15:34:18 08/09/2008/09/2023 urina lysis , dipst ick KET Negati ve Not Available In-Office Order Internal Use Only DO Not Attach Compendium DO Not Attach Compendium, Do Not Delete/merge, [id number] 08/09/2023 15:34:18 08/09/2008/09/2023 urina lysis , dipst ick SG 1.030 Not Available In-Office Order Internal Use Only DO Not Attach Compendium DO Not Attach Compendium, Do Not Delete/merge, [id number] 08/09/2023 15:34:18 08/09/2008/09/2023 urina lysis , dipst ick BLO Negati ve Not Available In-Office Order Internal Use Only DO Not Attach Compendium DO Not Attach Compendium, Do Not Delete/merge, [id number] 08/09/2023 15:34:18 08/09/20 23 08/09/2023 urina lysis , dipst ick pH 5.0 Not Available In-Office Order Internal Use Only DO Not Attach Compendium DO Not Attach Compendium, Do Not Delete/merge, 08/09/2023 15:34:18 08/09/20 23 08/09/2023 urina lysis , dipst ick PRO Negati ve Not Available In-Office Order Internal Use Only DO Not Attach Compendium DO Not Attach Compendium, Do Not Delete/merge, 08/09/2023 15:34:18 08/09/20 23 08/09/2023 urina lysis , dipst ick URO 0.2 E.U. / dl Not Available In-Office Order Internal Use Only DO Not Attach Compendium DO Not Attach Compendium, Do Not Delete/merge, 08/09/2023 15:34:18 08/09/20 23 08/09/2023 urina lysis , dipst ick NIT negati ve Not Available In-Office Order Internal Use Only DO Not Attach Compendium DO Not Attach Compendium, Do Not Delete/merge, 08/09/2023 15:34:18 08/09/20 23 08/09/2023 urina lysis , dipst ick DYAN Negati ve Not Available In-Office Order Internal Use Only DO Not Attach Compendium DO Not Attach Compendium, Do Not Delete/merge, 08/09/2023 15:34:18 02/10/20 21 02/09/2021 MAMMO , scree smiley, digit al, bilat eral No observ ation record ed. [email or web address] [address], [address], 07/31/2021 07:16:46 01/17/20 22 01/15/2022 imagi ng/di agnos tic resul t No observ ation record ed. BARCODE Not Available 2021 14:23:00 03/06/20 22 03/06/2022 MAMMO , scree smiley, digit al, bilat eral No observ ation record ed. [address], [address], 03/06/2022 08:22:11 03/07/20 23 03/07/2023 MAMMO , scree smiley, digit al, bilat eral No observ ation record ed. [facility] [address] [facility], [place], [address], 03/07/2023 09:33:56 06/03/20 24 06/03/2024 MAMMO , scree smiley, digit al, bilat eral No observ ation record ed. Not Available 05/21 08:10:53 Result Notes None recorded. Problems Name Problem SNOMED Code Status Onset Date Resolution Date Notes Provider Name and Address Organization Details Recorded Time Candidal vulvovagin itis 53468002 Active recurrent for years, treated in 11/2014 with gynazole 1 then Diflucan and also nystatin powder for topical monilia Louann Donnelly MD [address], [place], [address], [place] - [facility], 13:39:27 Dyspareuni a 28017457 Active due to persistent monilia Louann Donnelly MD [address], [place], [address], [place] - [facility], 13:39:27 Galactorrh ea not associated with childbirth 71841845 Active Louann Donnelly MD [address], [place], [address], [place] - [facility], 13:39:27 Candidiasi s of skin 12636075 Active Louann Donnelly MD [address], [place], [address], [place] - [facility], 13:39:27 Menorrhagi a 460368116 Active for years. Had 2 sonogram and also 2 emb, but it recurs Louann Donnelly MD [address], [place], [address], [place] [facility], 5 13:39:27 Acute lower urinary tract infection 455936044 Active Louann Donnelly MD [address], [place], [address], [place] [facility], 5 13:39:27 Acute vaginitis 12575305 Active Louann Donnelly MD [address], [place], [address], [place] [facility], 5 13:39:27 Psoriasis with arthropath y Active 2014 Louann Donnelly MD [address], [place], [address], [place] [facility], 6 09:21:57 Cyst of ovary 90998504 Active 2016 complex right ovarian cyst 01/2017, likely hemorrhagi c Louann Donnelly MD [address], [place], [address], [place] [facility], 7 10:07:38 Injury of lung 170520575 Active 2018 possibly starting to have idiopathic pulmonary fibrosis Louann Donnelly MD [address], [place], [address], [place] [facility], 9 15:49:08 Problem Notes None recorded. Procedures Surgical History Date Name Laterality Status Provider Name and Address Organization Details Recorded Time 4 Most Recent Mammogram completed Tri Long [place] - [facility], 10/29/2024 11:45:59 3 LEEP completed Tri Long [place] - [facility], 03/23/2015 08:24:50 Imaging Results Imaging Date Name Status LastModified by [facility] Details LastModified Time 02/09/2021 MAMMO, screening, digital, bilateral completed [email or web address], [address], 07/31/2021 07:16:46 01/15/2022 imaging/diagno stic result completed BARCODE Information not available 01/16/2022 14:23:00 03/06/2022 MAMMO, screening, digital, bilateral completed [address], [address], 03/06/2022 08:22:11 03/07/2023 MAMMO, screening, digital, bilateral completed [address], [address], 03/07/2023 09:33:56 06/03/2024 MAMMO, screening, digital, bilateral completed Information not available 06/04/2024 08:10:53 Procedure Notes None recorded. Medical Equipment None Reported. Allergies Allergen ID Allergen Name Allergen Category Reaction Reaction Severity Criticality Documentation Date Start Date Code Code System Note Provider Name and Address Organization Details Recorded Time 07296 iodine medicatio n rash Not available Not available 12/16/2014 5933 RxNorm Tri nieves [place] - [facility], 5 14:11:17 Medications Name Sig Start Date Stop Date Status Note LastModified by Organization Details LastModified Time [id number] cream (n) APPLY 1 TO 2 GRAMS TO AFFECTED AREA 3-4 TIMES DAILY, RUB IN THOROUGH LY. 08/11 completed Not Available Not Available Not Available fluoxetin e 40 mg capsule TAKE ONE CAPSULE BY MOUTH EVERY DAY active Not Available Not Available No t Available medroxypr ogesteron e 10 mg tablet TAKE ONE TABLET BY MOUTH EVERY DAY 05/26 completed Not Available Not Available Not Available fluconazo le 100 mg tablet 04/27 completed Not Available Not Available Not Available buspirone 5 mg tablet TAKE ONE TABLET BY MOUTH TWICE A DAY 03/13 completed Not Available Not Available Not Available potassium chloride ER 10 mEq capsule,e xtended release TAKE ONE CAPSULE BY MOUTH THREE TIMES A DAY active Not Available Not Available No t Available prednison e 10 mg tablet 04/27 completed Not Available Not Available Not Available sulfasala zine 500 mg tablet 05/26 completed Not Available Not Available Not Available albuterol sulfate 2.5 mg/3 mL (0.083 %) solution for nebulizat ion USE ONE VIA VIA NEBULIZE R EVERY 4 HOURS NEEDED active Not Available Not Available No t Available lisinopri l 20 mg-hydroc hlorothia zide 12.5 mg tablet TAKE ONE TABLET BY MOUTH EVERY DAY active Not Available Not Available No t Available oxybutyni n chloride ER 10 mg tablet,ex tended release 24 hr TAKE ONE TABLET BY MOUTH EVERY DAY active Not Available Not Available No t Available azithromy seble 250 mg tablet 08/11 completed Not Available Not Available Not Available fluconazo le 150 mg tablet Take 1 tablet every day by oral route at bedtime for 1 day. 04/27 completed Not Available Not Available Not Available Nystop 100,000 unit/gram topical powder APPLY TO THE AFFECTED AREA(S) BY TOPICAL ROUTE 2 TIMES PER DAY 04/27 completed Not Available Not Available Not Available fluconazo le 200 mg tablet TAKE ONE TABLET EVERY SATURDAY & SATURDAY FOR 9 TO 12 MONTHS DIRECTED 08/09 completed Not Available Not Available Not Available meloxicam 15 mg tablet 02/05 completed Not Available Not Available Not Available phenazopy ridine 200 mg tablet 05/26 completed Not Available Not Available Not Available lisinopri l 20 mg tablet 05/13 completed Not Available Not Available Not Available prednison e 20 mg tablet 08/11 completed Not Available Not Available Not Available fluoxetin e 10 mg tablet TAKE ONE HALF TABLET BY MOUTH EVERY DAY IN THE MORNING FOR ONE WEEK, THEN INCREASE TO ONE TABLET DAILY. 08/09 completed Not Available Not Available Not Available prednison e 5 mg tablet 04/27 completed Not Available Not Available Not Available sulfasala zine 500 mg tablet,de layed release 05/26 completed Not Available Not Available Not Available penicilli n V potassium 500 mg tablet 08/11 completed Not Available Not Available Not Available potassium chloride ER 10 mEq tablet,ex tended release TAKE ONE TABLET BY MOUTH EVERY DAY active Not Available Not Available No t Available metronida zole 500 mg tablet active Not Available Not Available No t Available ciproflox acin 500 mg tablet active Not Available Not Available No t Available sulfameth oxazole 800 mg-trimet hoprim 160 mg tablet TAKE ONE TABLET BY MOUTH EVERY 12 HOURS FOR 7 DAYS 01/16 completed Not Available Not Available Not Available peg-elect rolyte solution 420 gram oral solution DRINK 8 OUNCES BY MOUTH DIRECTED FOLLOWIN G INSTRUCT IONS GIVEN BY DOCTORS OFFICE 03/13 completed Not Available Not Available Not Available doxycycli ne monohydra te 100 mg tablet TAKE ONE TABLET BY MOUTH TWICE A DAY FOR 7 DAYS 03/13 completed Not Available Not Available Not Available ondansetr on 8 mg disintegr ating tablet DISSOLVE ONE TABLET BY MOUTH TWICE A DAY FOR 10 DAYS active Not Available Not Available No t Available oxycodone -acetamin ophen 5 mg-325 mg tablet 08/11 completed Not Available Not Available Not Available methenami ne hippurate 1 gram tablet TAKE ONE TABLET BY MOUTH TWICE A DAY (TAKE WITH VITAMIN C.) active Not Available Not Available No t Available amoxicill in 875 mg tablet TAKE 1 TABLET BY MOUTH TWICE A DAY active Not Available Not Available No t Available potassium chloride ER 20 mEq tablet,ex tended release(p art/cryst ) 05/13 completed Not Available Not Available Not Available lorazepam 0.5 mg tablet active Not Available Not Available Not Available Depo-Prov era 150 mg/mL intramusc ular suspensio n Inject 1 mL every 3 months by intramus cular route as directed for 360 days. 2014 active make appointm ent for next visit in 12 weeks, followin g administ ration. Must have negative pregnanc y test prior to first injectio n. Any time she is overdue for an injectio n she will need to have this reviewed by prior to receivin g injectio n, to rule out possible pregnanc y. Not Available Not Available Not Available methotrex ate sodium 2.5 mg tablet 08/11 completed Not Available Not Available Not Available oxycodone -acetamin ophen 10 mg-325 mg tablet active Not Available Not Available Not Available tamsulosi n 0.4 mg capsule TAKE ONE CAPSULE BY MOUTH EVERY DAY. TAKE 30 MINUTES AFTER THE SAME MEAL EVERY DAY 04/12 completed Not Available Not Available Not Available amitripty line 10 mg tablet TAKE 1-2 TABLETS BY MOUTH EVERY DAY AT BEDTIME NEEDED FOR SLEEP 08/09 completed Not Available Not Available Not Available potassium citrate ER 10 mEq (1,080 mg) tablet,ex tended release active Not Available Not Available Not Available benzonata te 100 mg capsule 03/13 completed Not Available Not Available Not Available buspirone 10 mg tablet TAKE ONE AND ONE-HALF TABLETS BY MOUTH TWICE A DAY active Not Available Not Available No t Available oxycodone 5 mg capsule active Not Available Not Available Not Available fluoxetin e 10 mg capsule TAKE ONE CAPSULE BY MOUTH EVERY DAY (TAKE WITH 20MG CAPSULE) active Not Available Not Available No t Available lisinopri l 30 mg tablet active Not Available Not Available Not Available oxybutyni n chloride ER 5 mg tablet,ex tended release 24 hr TAKE ONE TABLET BY MOUTH EVERY DAY active Not Available Not Available No t Available gabapenti n 300 mg capsule TAKE ONE CAPSULE BY MOUTH EVERY MORNING AND TAKE TWO CAPSULES BY MOUTH EVERY EVENING active Not Available Not Available No t Available buspirone 7.5 mg tablet TAKE ONE TABLET BY MOUTH TWICE A DAY active Not Available Not Available No t Available budesonid e 0.5 mg/2 mL suspensio n for nebulizat ion USE ONE VIAL VIA NEBULIZE R ONCE A DAY active Not Available Not Available No t Available folic acid 1 mg tablet 08/11 completed Not Available Not Available Not Available amoxicill in 250 mg capsule 08/11 completed Not Available Not Available Not Available monteluka st 10 mg tablet TAKE ONE TABLET BY MOUTH AT BEDTIME 08/09 completed Not Available Not Available Not Available gabapenti n 100 mg capsule TAKE ONE CAPSULE BY MOUTH TWICE A DAY AND TAKE FOUR CAPSULES BY MOUTH AT NIGHT active Not Available Not Available No t Available BD Tuberculi n Syringe 1 mL 25 gauge x 5/8 INJECT 15MG DIRECTED EVERY 7 DAYS active Not Available Not Available No t Available albuterol sulfate HFA 90 mcg/actua tion aerosol inhaler TAKE 2 PUFFS EVERY 4 HOURS NEEDED FOR SHORTNES S OF BREATH OR WHEEZING active Not Available Not Available No t Available piroxicam 20 mg capsule TAKE ONE CAPSULE BY MOUTH EVERY DAY. STOP IBUPROFE N active Not Available Not Available No t Available fluoxetin e 20 mg capsule TAKE ONE CAPSULE BY MOUTH EVERY DAY (TAKE WITH 10MG CAPSULE) active Not Available Not Available No t Available fluticaso ne propionat e 50 mcg/actua tion nasal spray,inocente pension active Not Available Not Available Not Available sertralin e 50 mg tablet active Not Available Not Available Not Available naproxen 500 mg tablet 05/26 completed Not Available Not Available Not Available amoxicill in 875 mg-potass ium clavulana te 125 mg tablet 08/11 completed Not Available Not Available Not Available amoxicill in 500 mg-potass ium clavulana te 125 mg tablet active Not Available Not Available Not Available oxycodone 5 mg tablet active Not Available Not Available Not Available methotrex ate sodium (PF) 25 mg/mL injection solution INJECT 0.8ML ( 20MG) ONCE EVERY 7 DAYS DIRECTED . (DISCARD CONTENTS OF VIAL AFTER ONE USE) 11/05 completed Not Available Not Available Not Available Spiriva with [employer] r 18 mcg and inhalatio n capsules 08/11 completed Not Available Not Available Not Available nitrofura ntoin monohydra te/macroc rystals 100 mg capsule TAKE ONE CAPSULE BY MOUTH EVERY 12 HOURS FOR 7 DAYS 01/16 completed Not Available Not Available Not Available lactulose 10 gram/15 mL oral solution TAKE 15 MLS (1 TBSP) BY MOUTH ONCE A DAY WITH BREAKFAS T FOR 7 DAYS 03/13 completed Not Available Not Available Not Available Flovent HFA 110 mcg/actua tion aerosol inhaler active Not Available Not Available Not Available Humira Pen 40 mg/0.8 mL subcutane ous kit 02/05 completed Not Available Not Available Not Available Symbicort 160 mcg-4.5 mcg/actua tion HFA aerosol inhaler INHALE 2 PUFFS BY MOUTH TWICE A DAY active Not Available Not Available No t Available oxycodone 10 mg tablet TAKE ONE TABLET BY MOUTH EVERY DAY 02/05 completed Not Available Not Available Not Available ClearLax 17 gram/dose oral powder active as needed Not Available Not Available Not Available Vitamin D3 50 mcg (2,000 unit) capsule TAKE ONE CAPSULE BY MOUTH EVERY DAY 08/11 completed Not Available Not Available Not Available Aerochamb er Plus Flow-Vu active Not Available Not Available Not Available Xeljanz 5 mg tablet Take 1 tablet twice a day by oral route. 03/13 completed Not Available Not Available Not Available Gynazole- 1 2 % vaginal cream INSERT 1 APPLICAT ORFUL VAGINALL Y FOR 1 DAY active Not Available Not Available No t Available Multi Vitamin active Not Available Not Available Not Available Cosentyx Pen 300 mg/2 Pens (150 mg/mL) subcutane ous active Not Available Not Available Not Available Spiriva Respimat 1.25 mcg/actua tion solution for inhalatio n INHALE TWO PUFFS BY MOUTH EVERY DAY active Not Available Not Available No t Available Trelegy Ellipta 100 mcg-62.5 mcg-25 mcg powder for inhalatio n INHALE ONE PUFF BY MOUTH EVERY DAY 04/12 completed Not Available Not Available Not Available Xolair 150 mg/mL subcutane ous syringe 03/13 completed Not Available Not Available Not Available Dupixent 300 mg/2 mL subcutane ous pen injector 08/09 completed Not Available Not Available Not Available Vitals Date Recorded Body weight Body mass index (BMI) Body height Heart rate Systolic blood pressure Diastolic blood pressure Provider Name and Address Organization Details Last Updated DateTime 9 85103.3 5 g 26.3 kg/m2 162.56 cm 86 /min 117 mm[Hg] 66 mm[Hg] Tri Gooden in [facility], 9 15:27:24 Date Recorded Body height Body mass index (BMI) Body weight Body temperature Heart rate Systolic blood pressure Diastolic blood pressure Provider Name and Address Organization Details Last Updated DateTime 1 162.56 cm 28.3 kg/m2 71094.7 4 g 97.3 [degF] 86 /min 133 mm[Hg] 76 mm[Hg] Fatemeh Gooden in [facility], 1 08:07:02 Date Recorded Body height Body mass index (BMI) Body weight Body temperature Heart rate Systolic blood pressure Diastolic blood pressure Provider Name and Address Organization Details Last Updated DateTime 2 162.56 cm 27.8 kg/m2 08410.6 8 g 97.4 [degF] 70 /min 138 mm[Hg] 69 mm[Hg] Tri Gooden in [facility], 2 13:49:04 Date Recorded Body height Body mass index (BMI) Body weight Body temperature Heart rate Systolic blood pressure Diastolic blood pressure Provider Name and Address Organization Details Last Updated DateTime 2 162.56 cm 27.3 kg/m2 60182.1 9 g 97.3 [degF] 63 /min 117 mm[Hg] 63 mm[Hg] Tri Gooden in [facility], 2 14:44:56 Date Recorded Body height Body temperature Body mass index (BMI) Body weight Heart rate Systolic blood pressure Diastolic blood pressure Provider Name and Address Organization Details Last Updated DateTime 3 162.56 cm 97.3 [degF] 31.5 kg/m2 04362.2 g 76 /min 134 mm[Hg] 59 mm[Hg] Tri Gooden in [facility], 3 15:22:44 Social History Question Answer Notes LastModified by Organizat ion Details LastModified Time Tobacco Smoking Status Former Smoker Not Available [facility] 08/23/2020 03:19:39 What Is Your Level Of Alcohol Consumption? None [id number] Information not available 08/23/2020 What Is Your Level Of Caffeine Consumption? Moderate [id number] Information not available 08/23/2020 In The 14 Days Before Symptom Onset, Have You Had Close Contact With A Laboratory-confir med COVID-19 While That Case Was Ill? No Information not available 01/16/2022 In The 14 Days Before Symptom Onset, Have You Had Close Contact With A Person Who Is Under Investigation For COVID-19 While That Person Was Ill? No Information not available 01/16/2022 Have You Been To An Area Known To Be High Risk For COVID-19? No Information not available 01/16/2022 Are You Currently Employed? Yes Information not available 01/16/2022 What Type Of Diet Are You Following? REGULAR [id number] Information not available 08/23/2020 Which Illicit Or Recreational Drugs Have You Used? No [id number] Information not available 08/23/2020 Do You Reside In Or Have You Traveled To An Area Where Ebola Virus Transmission Is Active? No [id number] Information not available 08/23/2020 Do You Or Have You Ever Used E-cigarettes Or Vape? Never Used Electronic Cigarettes [id number] Information not available 08/23/2020 Education Post Graduate Information not available 12/16/2014 What Is The Highest Grade Or Level Of School You Have Completed Or The Highest Degree You Have Received? [id number] Information not available 01/16/2022 Who Is Your Employer? 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 0 Information no t available 02/05/2017 Are There Any Guns Present In Your Home? No Information not available 01/16/2022 High Number Of Sexual Partners No Information not available 04/27/2016 To Which Gender Do You Self-identify? Female Information not available 04/27/2016 Marital Status Informatio n not available 12/16/2014 What Was The Date Of Your Most Recent Tobacco Screening? 01/16/2022 Information not available 01/16/2022 What Is Your Relationship Status? Information not available 01/16/2022 Are You Sexually Active? Yes [id number] Information not available 08/23/2020 At What Age Did You Start Smoking Tobacco? 14 Information not available 01/16/2022 Do You Or Have You Ever Used Smokeless Tobacco? Never Used Smokeless Tobacco [id number] Information not available 08/23/2020 How Much Tobacco Do You Smoke? No [id number] Information not available 08/23/2020 General Stress Level High [id number] Information not available 03/13/2021 Do You Feel Stressed (tense, Restless, Nervous, Or Anxious, Or Unable To Sleep At Night)? [id number] Information not available 01/16/2022 Do You Use Any Illicit Or Recreational Drugs? No Information not available 01/16/2022 How Many Years Have You Smoked Tobacco? 20 Quit 6 Yrs Ago [id number] Information not available 08/23/2020 Have You Recently (within The Last 12 Weeks, Or During A Current ) Traveled To Or Lived In A Zika-affected Area? No Information not available 04/27/2016 Sex: Female Functional Status Question Answer Note LastModified by Organization D etails LastModified Time What is your exercise level? None [id number] Information not available 08/23/2020 Mental Status None recorded. Family History Relationship Description Onset Age of this Age Resolved Age Notes LastModified by Organization Details LastModified Time Father Cerebrovascu lar accident stroke Not available 1 12/07/2014 13:36:26 Father Hypertensive disorder Not available 09/20 13:36:26 Mother Hypertensive disorder Not available 09/20 13:36:26 Mother Malignant tumor of cervix Not available 09/20 13:36:26 Mother Problem arthri tis Not available 10/06/2015 13:36:26 Sister Malignant tumor of cervix Not available 09/20 13:36:26 Maternal Grandfather Diabetes mellitus Not available 09/20 13:36:26 Maternal Uncle Diabetes mellitus Not available 09/20 13:36:26 Paternal Grandfather Problem cancer , not sure where sharron arechiga Not available 10/06/2015 13:36:26 Maternal Aunt Malignant tumor of breast tmeczywor Not available 2015 09:01:30 Medical History Condition Response Anesthesia complications N High Blood Pressure Y Candidate for MyRisk panel N Autoimmune Condition Y Thyroid Problems N Kidney or Bladder Problems N GI Problems N Lung Disease N Depression N Defects or Inherited Disease N History of Ovarian Cancer N Anemia Y History of Breast Cancer N KRYSTLE exposure N BRCA testing in past N Osteopenia Y Psychiatric Illness N Anxiety Disorder Y Diabetes N Arthritis Y Headaches or Migraines N Infertility N Asthma Y History of Cancer Y Endometriosis N Hepatitis N Heart Disease N Hypertension Y Osteoporosis N Gynecological History Statement/Question Response Dysmenorrhea Y Flow Heavy Date of LMP 03/21/2023 Frequency of Cycle (Q days) 28 Menses Monthly Y Duration of Flow (days) 6 Age at Menarche 13 Current Control Method Partner Vas ectomy Most Recent Mammogram 06/03/2024 Age at First Child 19 Obstetrics History GPAL:G 2 P 2 0 0 2 Type Value Full Term 2 Living 2 Total 2 Immunizations Vaccine Type Date Status Note Provider Nam e and Address Organization Details Recorded Time Influenza, split virus, quadrivalent, preservative 5 completed Tri nieves [place] [facility], 04/27/2016 09:00:10 pneumococcal, unspecified formulation 5 completed Tri nieves [place] [facility], 04/27/2016 09:00:26 Influenza, split virus, quadrivalent, preservative 6 completed Tri nieves [place] [facility], 02/05/2017 08:47:18 Influenza, split virus, quadrivalent, preservative 7 completed Tri nieves [place] [facility], 11/05/2017 14:41:29 Influenza, split virus, quadrivalent, preservative 8 completed Tri nieves [place] [facility], 08/11/2019 15:31:00 SARS-COV-2 (COVID-19) vaccine, UNSPECIFIED 1 completed TIMOTHY Jang in [facility], 03/13/2021 08:09:46 SARS-COV-2 (COVID-19) vaccine, UNSPECIFIED 1 completed TIMOTHY Jang in [facility], 03/13/2021 08:09:56 Influenza, split virus, quadrivalent, preservative 0 completed TIMOTHY Jang in [facility], 03/13/2021 08:10:15 Influenza, split virus, quadrivalent, preservative 1 completed Tri nieves [place] [facility], 04/12/2022 14:48:34 Past Encounters Encounter ID Performer Location Encounter Start Date Encounter Closed Date Diagnosis/Indication Diagnosis SNOMED-CT Code Diagnosis ICD10 Code Diagnosis Note [id number] Tri DONNELLY MD [address] [place] [address],[place] [address] 12/16/2014 13:41:30 12/16/2014 14:46:20 Candidal vulvovaginitis 42855227 [id number] Karolina Holloway LOUANN DONNELLY MD [address] [facility],[place] [address] 03/03/2015 13:28:17 03/03/2015 16:01:17 Galactorrhea not associated with childbirth 47050468 Candidiasis of skin 00280535 [id number] LOUANN DONNELLY MD [address] [facility],[place] [address] 03/23/2015 08:05:08 03/23/2015 09:17:18 Specialized medical examination 51005270 Screening for malignant neoplasm of rectum 429880965 Screening mammography [id number] MD LOUANN Preston MD [address] [place] [address] [place] [address] 10/06/2015 12:51:45 10/06/2015 14:27:29 Acute lower urinary tract infection 542271219 R30.0 Candidal vulvovaginitis 77501591 B37.3 Acute vaginitis 42869147 N76.0 [id number] MD LOUANN Preston MD [address] [place] [address], [place] [address] 04/27/2016 08:48:32 04/27/2016 13:27:38 Specialized medical examination 87913000 Z01.419 Screening for malignant neoplasm of rectum 571564490 Z12.12 Screening mammography 24 532442 Z12.31 [id number] MD LOUANN Preston MD [address] [place] [address], [place] [address] 02/05/2017 08:37:32 02/05/2017 10:59:12 Dysfunctional uterine bleeding 89796651 N93.8 [id number] MD LOUANN Preston MD [address] [place] [address], [place] [address] 02/12/2017 08:18:45 02/12/2017 15:25:14 Cyst of ovary 04783981 N83.02 [id number] MD LOUANN Preston MD [address] [place] [id number] 02/26/2017 14:38:08 02/27/2017 11:58:21 Acute lower urinary tract infection 450246951 R30.0 Cyst of ovary 72707736 N 83.02 Pain in pelvis 05611654 R10.2 [id number] MD LOUANN Preston MD [address] [place], [place] [address]E [address] [place] [id number] 05/13/2017 09:46:01 05/13/2017 13:02:30 Specialized medical examination 21655473 Z01.419 Screening for malignant neoplasm of rectum 786581046 Z12.12 Screening mammography 24 108119 Z12.31 Menorrhagia 944753538 N9 2.0 [id number] MD LOUANN Preston MD [address] [place] [address] 06/17/2017 15:42:04 06/17/2017 16:41:25 Cyst of ovary 63124050 N83.02 Psoriasis with arthropathy 04782597 L40.50 Menorrhagia 436206050 N9 2.0 [id number] MD LOUANN Preston MD [address] [place] [id number] 11/05/2017 14:31:24 11/05/2017 15:45:25 Cyst of ovary 61750859 N83.291 N83.292 N83.11 N83.12 Psoriasis with arthropathy 42642960 L40.50 [id number] MD LOUANN Preston MD [address] [place] [id number] 05/26/2018 10:50:41 05/26/2018 12:07:12 Specialized medical examination 02813681 Z01.419 Screening for malignant neoplasm of rectum 840479701 Z12.12 Screening mammography 24 879365 Z12.31 Psoriasis with arthropathy 31632533 L40.50 [id number] MD LOUANN Preston MD [address] [place] [address] [place] [address] 08/11/2019 15:18:37 08/11/2019 16:14:59 Screening mammography 49132164 Z12.31 Specialize d medical examination 41155233 Z01.419 Screening for malignant neoplasm of rectum 147245883 Z12.12 [id number] MD LOUANN Preston MD [address] [place] [address] [place] [address] 03/13/2021 08:00:43 03/13/2021 10:29:15 Specialized medical examination 03969011 Z01.419 Screening mammography 24 010835 Z12.31 Psoriasis with arthropathy 64571047 L40.50 [id number] MD LOUANN Preston MD [address] [place], [place] [address] [address] 01/16/2022 13:46:10 01/16/2022 15:30:51 Nausea 199044903 R11.0 Venereal d isease screening 276074169 Z11.3 Diverticulitis 236403595 K57.92 Right flank pain 6618876 09 R10.9 [id number] MD LOUANN Preston MD [address] [place] [address] [place] [address] 04/12/2022 14:37:52 04/12/2022 16:01:17 Specialized medical examination 85387942 Z01.419 Screening for malignant neoplasm of rectum 310028561 Z12.12 Screening mammography 24 708436 Z12.31 [id number] MD LOUANN Preston MD [address] [place] [address] [place] [address] 08/09/2023 15:16:51 08/09/2023 15:58:53 Specialized medical examination 49086935 Z01.419 Screening for malignant neoplasm of rectum 820017071 Z12.12 Screening mammography 24 259264 Z12.31 Acute lowe r urinary tract infection 746732673 R30.0 Health Concerns Section Related Observation LastModified by Organization Detai ls LastModified Time None Recorded Concern Status LastModified by Organization Details LastModified Time None Recorded Advance Directives Directive None Recorded Payers Encounter Date Sequence Insurance Name Policy Number Policy Castillo Covered Member ID Castillo Member ID Guarantor Name 08/11/2019 1 [place] [facility] [id number] Dexter Rumplik [id number] Teena Rumplik 03/13/2021 1 [place] [id number] Dexter Rumplik [id number] Teena Rumplik 01/16/2022 1 [place] [id number] Dexter Rumplik [id number] Teena Rumplik 04/12/2022 1 [place] [facility] [place] [id number] Dexter Rumplik [id number] Teena Rumplik 08/09/2023 1 [place] [facility] [id number] Dexter Rumplik [id number] Teena Rumplik Notes Date Note Type Note Provider Name and Address Organization Details Recorded Time 08/11/2019 text/html She is here for annual exam, is using a walker for her psoriatic arthritis, she may also be developing idiopathic pulmonary fibrosis. She went off methotrexate because she was worried it might be damaging her lungs. 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 Note from 2018: She is here for annual exam, is doing well. 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 She is wheelchair confined due to her psoriatic arthropathy. She went off Embrel and changed to a pill, but it is not working well for her yet. She failed Lucy also. She may consider Remicade. Louann Donnelly MD [address] 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 Note from 2018: She is here for annual exam, is using a walker for her psoriatic arthritis, she may also be developing idiopathic pulmonary fibrosis. She went off methotrexate because she was worried it might be damaging her lungs. 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 Menses are regular/heavy, has vasectomy. Louann Donnelly MD [address], [place], [id number], [place] - [facility], 03/13/2021 09:19:29 01/16/2022 text/html She is here for ED follow up. She went to the [facility] ED yesterday due to right upper flank pain. which had been ongoing for 4 weeks. She had gone to a walk-in clinic last week, was diagnosed with a UTI, it cultured E Coli 50 - 100K E Coli, treated with Bactrim for 5 days, the culture was sensitive to the Bactrim. Her pain did not improve with the treatment. She has also had profound nausea over these 4 weeks,, and has been feeling under the weather. She had hoped she would improve after the Bactrim, but she did not. Yesterday at the ED, A non-contrast CT was done. It showed bilateral non-obstructing stones up to 6 mm. No hydronephrosis. No suspicious masses. They noted the diagnosis was related to the renal stones, and felt it would pass spontaneously. they sent her home. Her test, labs, and CBC were fine. She is immunocompromised due to her Cosentyx. 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 Louann Donnelly MD [address], [place], [phone], [place] - [facility], 01/16/2022 15:28:34 04/12/2022 text/html She is here for annual exam, is doing well. Menses every 1 to 4 months, no significant vasomotor symptoms. s/p vasectomy. 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 Louann Donnelly MD [address], [place], [phone], [place] - [facility], 04/12/2022 15:58:32 08/09/2023 text/html She is here for annual, doing well, menses are every few months, only mild vasomotor symptoms. Her psoriatic arthritis is under control at this time. She is walking without a walker. She had been in a wheelchair in 2017 ! vasectomy. ___ Note from 2021: She is here for annual exam, is doing well. Menses every 1 to 4 months, no significant vasomotor symptoms. s/p vasectomy. 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 Louann Donnelly MD [address], [place], [phone], [place] - [facility] in [facility], 08/09/2023 15:55:54 OBGyn Episode No OBEpisode recorded.
--- OUTSIDE RECORDS SUMMARY | 2024-11-02 19:40 | XMS_ITS | Continuity of Care Document ---
Author Organization [facility] Address [address] [place] [address] [facility] Name Relationship Address Phone RUMPLIK, HOLDEN Personal Relationship Unknown Unav ailable RUMPLIK, HOLDEN Personal Relationship Unknown Unav ailable RUMPLIK, HOLDEN Personal Relationship Unknown Unav ailable RUMPLIK, HOLDEN Personal Relationship Unknown Unav ailable RUMPLIK, HOLDEN spouse Unknown Unavailable RUMPLIK, HOLDEN Personal Relationship Unknown Unav ailable RUMPLIK, HOLDEN Personal Relationship Unknown Unav ailable Care Team Providers [employer] Information Clerk Name Role Phone Madhavi CHAVES, Pretty Jimenez Primary Care Physician Encounter [facility] Date(s): 09/07/24 - 10/07/24 [facility] [address] [place] [address]- Encounter Type: Triage Allergies, Adverse Reactions, Alerts Substance Criticality Severity Reaction Reaction Severity Status iodine topical Activ e Mold Active cadexomer iodine topical Unable to assess criticality Persistent Mild Other Eruption Active Immunizations Given and Recorded Vaccine Date Status Refusal Reason zoster vaccine, inactivated 06/25/24 Recorded influenza virus vaccine, inactivated 06/25/24 Jackson rded influenza virus vaccine, inactivated 08/16/23 Jackson rded influenza virus vaccine, inactivated 09/02/22 Jackson rded influenza virus vaccine, inactivated 07/24/21 Jackson rded influenza virus vaccine, inactivated 07/12/21 Jackson rded influenza virus vaccine, inactivated 09/08/20 Jackson rded influenza virus vaccine, inactivated 06/23/20 Jackson rded influenza virus vaccine, inactivated 08/12/19 Jackson rded influenza virus vaccine, inactivated 08/19/18 Jackson rded influenza virus vaccine, inactivated 07/21/18 Jackson rded influenza virus vaccine, inactivated 07/23/17 Jackson rded influenza virus vaccine, inactivated 08/07/16 Jackson rded influenza virus vaccine, inactivated 07/10/16 Jackson rded influenza virus vaccine, inactivated 09/20/15 Jackson rded influenza virus vaccine, inactivated 09/05/15 Jackson rded influenza virus vaccine, inactivated 11/04/12 Jackson rded influenza virus vaccine, inactivated 08/31/08 Jackson rded SARS-CoV-2(COVID-19)mRNA-LNP vac([id number]) 06/25/24 Recorded SARS-CoV-2(COVID-19)mRNA-LNP vac([id number]) 10/13/23 Recorded [id number] bivalent booster vax 03/25/23 Recorded [id number] bivalent booster vax 09/02/22 Recorded SARS-CoV-2 (COVID-19) mRNA-1273 vaccine 05/17/22 R ecorded SARS-CoV-2 (COVID-19) mRNA-1273 vaccine 01/30/22 R ecorded SARS-CoV-2 (COVID-19) mRNA-1273 vaccine 11/04/21 R ecorded SARS-CoV-2 (COVID-19) mRNA-1273 vaccine 09/24/21 R ecorded SARS-CoV-2 (COVID-19) mRNA-1273 vaccine 05/28/21 R ecorded SARS-CoV-2 (COVID-19) mRNA-1273 vaccine 12/15/20 R ecorded SARS-CoV-2 (COVID-19) mRNA-1273 vaccine 11/17/20 R ecorded pneumococcal 13-valent vaccine 06/23/20 Recorded pneumococcal 23-valent vaccine 11/01/15 Recorded pneumococcal 23-valent vaccine 08/31/08 Recorded Meningococcal Conjugate Vaccine 11/01/15 Recorded tetanus/diphtheria/pertussis, acel(Tdap) 02/09/10 Recorded Medications Albuterol (Eqv-ProAir HFA) = 180 mcg, Inhalation, Every 6 hours, 0 Refills, Maintenance, 10/05/24 3:05:00 PM EST, Partial fillupon patient request if the prescription is for a schedule II opioid drug. Start Date: 10/05/24 Status: Ordered Repeat number: 1 aspirin 81 mg oral capsule 1 capsule = 81 mg, By Mouth, Daily, # 90 capsule, 4 Refills, Maintenance, 10/05/24 5:10:00 PM EST, Capsule, [facility], Partial fill upon patient request if the prescription is for a schedule II opioid drug., 162.56, cm, 10/05/24 10:21:00 EST, Height, 90.9, kg, 09/03/24 10:46:00 EST, Dry Weight Start Date: 10/05/24 Status: Ordered Quantity: 90.0 Unit: capsule Repeat number: 5 busPIRone 10 mg oral tablet 15 mg, 1.5, tablet, By Mouth, 2 times a day, 09/29/21 Adjust to 15 mg BID for anxiety, Refills 0, Maintenance, 09/29/21 3:11:00 PM EST, Partial fill upon patient request if the prescription is for a schedule II opioid drug. Start Date: 09/29/21 Status: Ordered Repeat number: 1 clopidogrel 75 mg oral tablet 75 mg, By Mouth, Daily, # 90 tablet, Refills 2, Tot. Refills 2, Maintenance, 10/05/24 5:09:00 PM EST, Route to Pharmacy Electronically, [facility], Partial fill upon patient request if the prescription is for a schedule II opioid drug., 162.56, cm, 10/05/24 10:21:00 EST, Height, 90.9,kg, 09/03/24 10:46:00 EST, Dry Weight Start Date: 10/05/24 Stop Date: 03/29/26 Status: Ordered Quantity: 90.0 Unit: tablet Repeat number: 3 hydrochlorothiazide-lisinopril 12.5 mg-20 mg oral tablet 1 tablet, By Mouth, Daily, # 30 tablet, 5 Refills, Maintenance, 07/10/24 3:52:00 PM EDT, [id number], 30, TAKE ONE TABLET BY MOUTH EVERY DAY, 163, cm, 06/29/24 9:19:00 EDT, Height Start Date: 07/10/24 Status: Ordered Quantity: 30.0 Unit: tablet Repeat number: 1 losartan 25 mg oral tablet 25 mg, 1, tablet, By Mouth, Daily, # 90 tablet, Refills 3, Tot. Refills 3, Maintenance, 07/27/24 3:45:00 PM EDT, Route to Pharmacy Electronically, [id number], Partial fill upon patient request if the prescription is for a schedule II opioid drug., 163, cm, 07/27/24 15:23:00 EDT, Height Start Date: 07/27/24 Status: Ordered Quantity: 90.0 Unit: tablet Repeat number: 4 Potassium Chloride (Djb-Cvdp-Mof 10) 10 mEq oral tablet, extended release 1 tablet, By Mouth, Daily, # 90 tablet, 4 Refills, Maintenance, 09/10/24 3:44:00 PM EST, [id number], 163, cm, 09/10/24 15:24:00 EST, Height, 90.9, kg, 09/03/24 10:46:00 EST, Dry Weight Start Date: 09/10/24 Status: Ordered Quantity: 90.0 Unit: tablet Repeat number: 5 PROzac 20 mg oral capsule 20 mg, 1, capsule, By Mouth, Daily in AM, Dosage increase, # 30 capsule, Refills 1, Tot. Refills 1,Maintenance, 09/29/21 12:10:00 PM EST, Route to Pharmacy Electronically, [id number], Partial fill upon patient request if the prescription is for a schedule II opioid drug., 165, cm, 09/15/21 10:56:00 EST, Height Start Date: 09/29/21 Status: Ordered Quantity: 30.0 Unit: capsule Repeat number: 2 Problem List Condition Confirmation Course Effective Dates Status H ealth Status Informant Asthma Confirmed Active Chronic diarrhea Confirmed Active Complex regional pain syndrome I Confirmed Active Dyspnea on exertion Confirmed Active Fatigue after COVID-19 vaccination Confirmed Active Fatigue Confirmed Active Fibromyalgia Confirmed Active Goiter Confirmed Active Hypertension Confirmed Active IBS (irritable bowel syndrome) Confirmed Active Kidney stone Confirmed Active Malignant tumor of cervix Confirmed Active Anxiety and depression Confirmed Active Multiple lung nodules Confirmed Active Lower extremity weakness Confirmed Active Nephrocalcinosis Confirmed Active Obese class I Confirmed Active Pins and needles sensation Confirmed Active Psoriatic arthritis Confirmed Active Urine incontinence Confirmed Active Social History Social History Type Response Smoking Status Former smoker, quit more than 30 days ago entered on: 04/02/24 Sex Sex Representation Female (finding) Patient Care team information Care Team Personnel Name: Divya Echavarria Position: [facility] Office Staff Member Role: Lifetime Consulting Physician Name: Mikayla Pena Position: [facility] Outreach Member Role: Lifetime Consulting Physician Name: Pretty Hendrickson MD Position: [facility] Physician - Primary Care Member Role: PCP Address: [address] [place] [address], [address] [place] [address]- [place] Telecom: Care Team Related Persons Name: HOLDEN CARABALLO Insurance Providers Guarantor name: AMIE ILYA Health Plan Information #: 1 Payer: HMO [employer] Member Number: NA Policy Number: NA Group Number: NA
--- OUTSIDE RECORDS SUMMARY | 2024-11-02 19:40 | XMS_ITS | Continuity of Care Document ---
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 Name Role Phone Madhavi CHAVES, Pretty Jimenez Primary Care Physician Encounter [facility] [place] Date(s): 10/05/24 - 10/05/[address] [address] Discharge Disposition: A-D/C Home Attending Physician: Panfilo Tobin MD Admitting Physician: Panfilo Tobin MD Referring Physician: Panfilo Tobin MD Encounter Type: Disch Daystay Allergies, Adverse Reactions, Alerts Substance Criticality Severity [...] virus vaccine, inactivated 08/31/08 Jackson rded SARS-CoV-2(COVID-19)mRNA-LNP vac(uwf158) 06/25/24 Recorded SARS-CoV-2(COVID-19)mRNA-LNP vac(adh202) 10/13/23 Recorded [id number] bivalent booster vax 03/25/23 Recorded [id number] bivalent booster vax 09/02/22 Recorded SARS-CoV-2 (COVID-19) [...] Refills, Maintenance, 10/05/24 5:10:00 PM EST, Capsule, [facility], Partial fill upon patient request if [...] 5:09:00 PM EST, Route to Pharmacy Electronically, [facility], Partial fill upon patient request if [...] EDT, Route to Pharmacy Electronically, [id number], Partial fill upon patient request if the prescription is for a schedule II opioid drug., 163, cm, 07/27/24 15:23:00 EDT, Height Start Date: 07/27/24 Status: Ordered Quantity: 90.0 Unit: tablet Repeat number: 4 Potassium Chloride (Kbz-Pvvx-Vvy 10) 10 mEq oral tablet, extended release [...] EST, Route to Pharmacy Electronically, [id number], Partial fill upon patient request [...] arthritis Confirmed Active Urine incontinence Confirmed Active Vital Signs Most recent to oldest [Reference Range]: 1 2 3 Height 162.56 cm (10/05/24 10:21 AM) Weight 90.8 kg (10/05/24 10:21 AM) Oxygen Saturation [94-100 %] 96 % (10/05/24 8:18 PM) 96 % (10/05/24 8:14 PM) 97 % (10/05/24 7:44 PM) Pulse Rate [55-90 bpm] 64 bpm (10/05/24 10:21 AM) Body Mass Index [18.5-24.99 kg/m2] 34.36 kg/m2 *>HHI* (10/05/24 10:21 AM) Blood Pressure [90-138/55-84 mm Hg] 124/76mm Hg (10/05/24 9:00 PM) 117/78mm Hg (10/05/24 8:47 PM) 131/75mm Hg (10/05/24 8:15 PM) Respiratory Rate [16-30 br/min] 13 br/min *L* (10/05/24 8:18 PM) 12 br/min *L* (10/05/24 8:14 PM) 11 br/min *L* (10/05/24 7:44 PM) Temperature [96.8-100.4 DegF] 98.3 DegF (10/05/24 10:21 AM) Mode of Delivery (Oxygen) Room air (10/05/24 3:00 PM) Room air (10/05/24 10:21 AM) Blood pressure sites Arm, right (10/05/24 10:21 AM) Temperature Route Oral (10/05/24 10:21 AM) Social History Social History Type Response Smoking Status Former smoker, quit more than 30 days ago entered on: 04/02/24 Sex Sex Representation Female (finding) Note * Event Display: Hemodynamic Procedure Report Authored Date: [id number] * Event Display: Hemodynamic Procedure Report Authored Date: * Kaylin Galvan RN: PERFORM Event Display: Discharge/Transfer Note Hospital Authored Date: [id number] Nursing Discharge Note Entered On: 10/05/2024 21:27 EST Performed On: 10/05/2024 21:27 EST by Kaylin Galvan RN Nursing Discharge Note 2 Discharge Time : 10/05/2024 21:15 EST Discharge Level of Care at Discharge : Home/Long-Term/Foster Care Patient Left Unit Via : Wheelchair Patient Accompanied Off Unit with : Responsible adult DC Instructions Provided & Signed by Pt : Yes Patient Understands D/C Instructions : Yes Patient Instructions Discharge Signed : Yes Did Pt have Specialty Bed or Wound Vac : No Kaylin Galvan RN - 10/05/2024 21:27 EST * Kaylin Galvan RN: PERFORM Event Display: Patient Education/Instruction Authored Date: [id number] Inpatient Adult Discharge Instructions. [address] [address] Name: AMIE CARABALLO : 1975?? Visit: 10/05/2024 09:18?? Current Date: 10/05/2024 16:53 ?? Account: [id number]?? Inpatient Adult Discharge Instructions We would like to thank you for allowing us to assist you with your healthcare needs. The following includes patient education materials and information regarding your injury/illness. Our entire staffstrives to provide an excellent experience for our patients and their families. PLEASE ENSURE YOU FOLLOW-UP PER THE INSTRUCTIONS BELOW! ?? YOUR OPINION IS IMPORTANT TO US! Please complete the survey you may receive by mail or email. Your feedback will be used to make improvements to the healthcare experiences of our patients and their families. Surveys are administered by [employer] ?? If further treatment with your primary care physician or another doctor is recommended, it is important for you to keep the appointment. Call your primary care physician or return to the Emergency Department immediately if your condition worsens, fails to improve, or new symptoms develop. If you need to find a doctor, you can call [facility] for a referral at [phone] or toll free at [phone]) or log in to [email or web address].. ?? [facility], in keeping with [facility] guidance, no longer requires face masks for staff, patientsor visitors in most situations. Similiar to time spent indoors at other locations, there is the chance that you were exposed to repiratory viruses during your time with us (such as flu or COVID-19). If you develop symptoms concerning for a viral respiratory infection, please seek testing (and treatment if indicated) from your medical provider or home test kit. ?? You can view and manage your care through the patient portal or by using a health care filiberto of your choosing. [employer] is a website that allows you to securely view your medical information including your hospital discharge summary, office visit summaries, medications and follow-up visits. You can also request appointments, renew medications, and request access to your medical information using a health care filiberto of your choosing, or just ask a question. You can enroll at [email or web address] or register during your next office visit. You have been discharged from [facility], Patient Care Unit: CARE??. If you have any questions regarding these instructions, including results of studies pending, afteryou leave, please call us and we will be happy to assist you 13/05. [facility] Nursing Unit Direct Phone Number, for 13/05 contact and results of studies pending CARE [address] [place] [address] Your Care Team Attending Physician Panfilo Tobin MD?? Consulting Providers Panfilo Tobin MD?? Discharging Providers Panfilo Tobin MD Tests Performed Below is a partial list of the tests performed during your hospitalization. You may have had other tests and procedures not included in this list. Please discuss all test results with your provider. Basic Metabolic Panel Beta HCG Serum (Females Only) CBC Basic Metabolic Panel?? Beta HCG Serum (Females Only)?? CBC?? Primary Care Provider Pretty Hendrickson MD? Advance Directive Health Care Proxy on File No Discharge Vitals Temperature: 98.3 DegF Height: 162.56 cm Pulse Rate: 64 bpm Weight: 90.8 kg Respiratory Rate:??10 br/min??Low Body Mass Index:??34.36 kg/m2??Critical Systolic Blood Pressure: 114 mm Hg Body surface area: 2.02 Diastolic Blood Pressure: 77 mm Hg ?? Oxygen Saturation: 98 % ?? Studies Pending All studies ordered during this hospital stay have been completed unless listed below. Please discuss all pending results with your provider listed above in these instructions. ?? No incomplete studies found?? What to do next Instructions From Your Doctor ?? Orders?? ensure TTE performed prior to discharge., ??10/05/24 15:35:00 EST?? Scheduled Follow-Up Appointments Saturday 8:30 AM EST ?? Where: [facility] [address] [place] [address]- Status: Pending You Need to Schedule the Following Appointments Follow Up with??Mahad CHAVES, Panfilo Estrada Where: [address] [facility] [place] [address]- Discharge Medications AMIE CARABALLO :1975 Visit Date:10/05/2024 Medications: Please continue your medications until treatment is completed or stopped by your provider. Medications not listed below should be discontinued. Discuss any questions related to medications with your provider. What How Much When Instructions Next Dose New Clopidogrel (clopidogrel 75 mg oral tablet) 75 Milligram Oral Daily Duration: 180 Days Refills: 2 Pickup at [facility] 3 tomorrow am Changed Aspirin (aspirin 81 mg oral capsule) 1 capsule Oral Daily Pickup at [facility] 3 tomorrow am Unchanged Albuterol (Albuterol (Eqv-ProAir HFA)) 180 Microgram Inhalation Every 6 hours resume Unchanged BusPIRone (busPIRone 10 mg oral tablet) 1.5 tab(s) Oral Twice a day Adjust to 15 mg BID for ??anxiety ?? resume Unchanged Fluoxetine (PROzac 20 mg oral capsule) 1 capsule Oral Daily in the morning Dosage increase ?? resume Unchanged Hydrochlorothiazide-Lisinopril (hydrochlorothiazide-lisinopril 12.5 mg-20 mg oral tablet) 1 tab(s) Oral Daily resume Unchanged Losartan (losartan 25 mg oral tablet) 1 tab(s) Oral Daily resume Unchanged Potassium Chloride (Potassium Chloride (Eun-Nglc-Gdo 10) 10 mEq oral tablet, extended release) 1 tab(s) Oral Daily resume Pharmacy Information [facility]: [address], [place] [phone] Prescription Given During Visit Aspirin (aspirin 81 mg oral capsule) - 1 capsule = 81 mg, By Mouth, Daily, # 90 capsule, 4 Refills,[facility], [address] [place] [phone]?? Clopidogrel (clopidogrel 75 mg oral tablet) - 75 mg, By Mouth, Daily, # 90 tablet, 2 Refills, [facility], [address] [place] [phone]?? Laboratory Results Below is a partial list of the most recent Laboratory test results done prior to this discharge. You may have had other tests and procedures not included in this list. Please discuss all test resultswith your provider. Basic Metabolic Panel (10/05/2024) ???Sodium - 144 mmol/L???Potassium - 4.3 mmol/L???Chloride - 108 mmol/L???Bicarbonate Level - 26 mmol/L???Anion Gap - 10???Glucose Level - 93 mg/dL???BUN - 18 mg/dL???Creatinine-Blood - 0.70 mg/dL???Estimated GFR Creatinine - 105 ML/MIN/1.73 M2???Calcium - 9.8 mg/dL Beta HCG Serum (Females Only) (10/05/2024) ???Blood - 2 mIU/mL CBC (10/05/2024) ???WBC - 6.0 k/mm3???RBC - 4.35 m/mm3???Hgb - 13.5 Gm/dL???Hct - 39.8 %???MCV - 91.5 femtoliters???MCH - 31.0 pg???MCHC - 33.9 Gm/dL???Platelet Count - 327 k/mm3???RDW-SD - 42.0 femtoliters???MPV - 9.0 femtoliters???Nucleated RBC (Automated) - 0.0 #/100 WBC'S???Abs. NRBC - 0.0 k/mm3 You will be contacted within 72 hours with your results. Allergies (NKA means No Known Allergies) cadexomer iodine topical??(Other, Eruption) Mold iodine topical Problems Active Problems??(20) Anxiety and depression?? Asthma?? Chronic diarrhea?? Complex regional pain syndrome I?? Dyspnea on exertion?? Fatigue?? Fatigue after COVID-19 vaccination?? Fibromyalgia?? Goiter?? Hypertension?? IBS (irritable bowel syndrome)?? Kidney stone?? Lower extremity weakness?? Malignant tumor of cervix?? Multiple lung nodules?? Nephrocalcinosis?? Obese class I?? Pins and needles sensation?? Psoriatic arthritis?? Urine incontinence?? Education Materials Below is the list of Educational Leaflet Providered with your Discharge Instructions. [employer] Patient Education - Understanding Atrial Septal Defect (ASD) in Adults?? [employer] Patient Education - Procedural Sedation?? [employer] Patient Education - M-Groin I Discharge Instructions?? Valuables and Belongings I fully understand and agree that [facility] accepts no responsibility for all my personal property including clothing, toilet articles, radios, jewelry, dentures, hearing aids, rings, money, or any other property that is in my possession or is brought to me after admission. I understand certain valuables may be placed in a hospital safe for a short period of time. I understand that the hospital is not liable for loss or damage due to accident, fire, or other natural occurrence while said property is in the safe. I accept full responsibility for any personal property that I keep with me, and will not hold the hospital responsible in case of loss or disappearance. I acknowledge that i have been encouraged to send valuables and belongings home. ?? Date for Pt to Sign Valuables/Belongings: 10/05/24 10:21:00 ?? Valuables & Belongings ?? Clothes Electronic devices Jewelry Monetary Items Personal devices Miscellaneous Medications (Valuables) Valuables at Bedside Jacket, Pants, Shirt, Shoes, Undergarments Cell phone ? Glasses ? Valuables Sent Home ? Valuables Sent to Security ? Valuables Sent to Locker ? Other Discharge Information ? Pulmonary Rehab Status?? Pulmonary Rehab Discharge Status?? Respiratory Rate:??10 br/min??Low ? Common Emergency Awareness Tips IS IT A STROKE? Act FAST and Check for these signs: FACE Does the face look uneven? ARM Does one arm drift down? SPEECH Does their speech sound strange? TIME Call 9-1-1 at any sign of stroke ?? Heart Attack Signs Chest discomfort: Most heart attacks involve discomfort in the center of the chest and lasts more than a few minutes, or goes away and comes back. It can feel like uncomfortable pressure, squeezing, fullness or pain. Discomfort in upper body: Symptoms can include pain or discomfort in one or both arms, back, neck, jaw or stomach. Shortness of breath: With or without discomfort. Other signs: Breaking out in a cold sweat, nausea, or lightheaded. Remember, MINUTES DO MATTER. If you experience any of these heart attack warning signs, call to get immediate medical attention! ?? Smoking can increase your chances of developing chronic health problems and can cause harmful effects to other family members in your house. If you smoke, you are strongly encouraged to quit. Please call [facility] at [phone] or [phone] ([phone]) or log in to [email or web address] for referrals to smoking cessation programs. ?? 055 Suicide & Crisis Lifeline is available 13/05 if you or someone you know needs to find a reason to keep living. By calling 874 you'll be connected to a skilled, trained counselor at a crisis center in your area. INPATIENT DISCHARGE INSTRUCTIONS SIGNATURE PAGE ILYACARLOSMY Location:[facility] Registration Date and Time:10/05/2024 09:18 EST Primary Care Physician: Pretty Hendrickson MD, Attending Physician: Panfilo Tobin MD, I AMIE CARABALLO, have received the above patient education materials/instructions and have verbalized understanding. If ambulance or transport services are being used I further acknowledge being given a choice of service. ?? If you need to contact me, please call me at this number: . Patient/[employer] Name: Patient/[employer] Signature: Relationship to Patient: Witness Name/Signature: Date: * Kaylin Galvan RN: PERFORM Event Display: Patient Education Leaflets Authored Date: [id number] Understanding Atrial Septal Defect (ASD) in Adults ?? [address] Understanding Atrial Septal Defect (ASD) in Adults Atrial septal defect (ASD) is a heart condition that???s present at (congenital). It???s one of the most common congenital heart defects. The heart has 4 chambers. With ASD there is a hole in the dividing wall (septum) between the 2 top chambers (atria) of the heart. Normally, this hole closes shortly after . Having this hole increases blood flow to the right side of the heart and to the lungs. This makes your heart and lungs work harder. A small ASD may not cause any problems. And the hole may close on its own. But over time, a large ASD can harm your heart and lungs. You may have been diagnosed with an ASD and possibly treated for it as a child, and want to follow up on it now as an adult. Or you may have just been diagnosed with an ASD as an adult. What causes an atrial septal defect? An ASD is a problem with the heart???s structure that you are born with. It may be the only defect you have. Or it may be part of a more complex set of defects. No one knows the exact cause of ASD. In many cases it seems to happen by chance. But having a family history of heart defects can be a risk factor. ?? Why is ASD a problem? Blood normally flows from chamber to chamber in one direction through the left and right sides of the heart. With an ASD, blood typically flows through the hole from the left atrium to the right atrium. This causes more blood than normal to pass through the right side of the heart. Extra blood has to be pumped by the right side of the heart to the lungs. This overworks the right side of the heartand creates too much blood flow to the lungs. If not treated, over time it can lead to high blood pressure in the lungs and to right-sided heart failure. ?? and ASD Women with an ASD are advised to see a full time staff interpreter before getting . This is to assess heart function and any risk. In most cases, a small or fixed ASD won???t cause any problems. But there is still some risk for complications. Women with a large or unfixed ASD, or other heart or lung problems, have a higher risk for problems while and after the baby is born. ?? Symptoms of ASD In some cases, an ASD is found when you are a child. But in other cases symptoms may not occur until you are an adult. Symptoms of ASD can include: ??? Extreme tiredness (fatigue) ??? Swollen feet, legs, or belly ??? Getting tired easily, often after activity ??? Shortness of breath ??? Fast heartbeat or skipped heartbeats ??? Heart murmur ??? Fainting If an ASD is not treated, you may be at a greater risk of heart failure, stroke, or increased pressure in the lungs (pulmonary hypertension). ?? How is ASD diagnosed in adults? Your healthcare provider will listen to your heart. If you have a large ASD, your provider may hearan abnormal heart sound. For smaller ASDs, it may not be possible to hear this. If your healthcare provider thinks you may have an ASD, you may have tests, such as: ??? Echocardiogram (echo). Sound waves (ultrasound) are used to make a picture of the heart and look for structural defects. ??? ECG (electrocardiogram). This test records the heart???s electrical activity. ??? Chest X-ray. X-rays are used to take a picture of the heart and lungs. ??? Heart MRI. This test uses radio waves, magnets, and a computer to make detailed pictures of the heart. ??? Cardiac catheterization. A thin, flexible tube (catheter) is put into the heart through blood vessels. This tests the blood flow in the heart???s arteries. ?? Treatment for ASD If you are diagnosed with ASD as an adult, treatment will depend on the location and size of the hole and any symptoms or complications that you have. ??? If your ASD is small and doesn???t affect your heart function, you may not need any treatment. ??? If your ASD is large, you will likely need treatment. But for some people with ASD and moderate to high pulmonary hypertension, closing the hole may not be advised. Talk about your specific case with your full time staff interpreter. Treatment to fix an ASD and close the hole is done using one of these methods: ??? Open-heart surgery ??? Cardiac catheterization. A thin, flexible tube (catheter) is put into the heart through blood vessels. The healthcare provider uses the catheter to insert a small device toclose the hole. Your healthcare provider will talk with you about which method is right for you. ?? Follow-up care after ASD closure Here???s what to expect after ASD closure: ??? Medicines and tests. You may be given medicines for a few months to prevent blood clots and infection. After that time, you may have some tests to see if you need any other procedures. This may include exercise stress tests, ECG, echocardiograms, and Holter monitors. ??? Activities. Your heart healthcare provider may limit your activities for a few weeks. Talk with your provider about when it???s safe to go back to your normal activities. ?? Possible complications of ASD closure If your ASD is diagnosed and closed as an adult, your outlook is generally good. But all procedureshave some risk. Possible complications after ASD closure include: ??? Atrial arrhythmias ??? Need for another surgery if there is a leak at the incision site ??? Over time, a risk of heart failure and pulmonary hypertension ?? Long-term follow-up for adults with ASD ??? If your ASD was closed (as a child or as an adult), shaheed need heart checks from time to time. This is to make sure the repair still works. ??? All adults with an unrepaired ASD must be seen regularly by a full time staff interpreter for the rest of their life. This is to be sure the ASD is not causing other problems. ?? Last Reviewed Date: 2023 ?? The [employer]. All rights reserved. This information is not intended as a substitute for professional medical care. Always follow your healthcare professional's instructions. ?? * Kaylin Galvan RN: PERFORM Event Display: Patient Education Leaflets Authored Date: [id number] Procedural Sedation ?? 32156 Procedural Sedation Procedural sedation is medicine to ease discomfort, pain, and anxiety during a procedure. The medicine is often given through an IV (intravenous) line in your arm or hand. In some cases, the medicinemay be taken by mouth or inhaled. While you are under sedation, you will likely be awake. But you may not remember it afterward. Why procedural sedation is used Sedation is used for many types of procedures. The goal is to reduce pain, anxiety, and stressful memories of a procedure. It can help your healthcare provider treat you. For example, having a brokenbone fixed may be easier if you feel relaxed. This type of sedation is used only for short, basic procedures. It's not used for complex surgery. Some procedures that use this type of sedation include: ??? Dental surgery ??? Breast biopsy, to take a sample of breast tissue ??? Endoscopy, to look at gastrointestinal problems ??? Bronchoscopy, tocheck for lung problems ??? Bone or joint realignment, to fix a broken bone or dislocated joint ???Minor foot or skin surgery ??? Electrical cardioversion, to restore a normal heart rhythm ??? Lumbar puncture, to check for neurological disease ?? Risks of procedural sedation Risks and possible side effects include: ??? Headache ??? Nausea and vomiting ??? Bad memories of the procedure ??? Slowed breathing ??? Changes in heart rate and blood pressure (rare) ??? Inhalation of stomach contents into your lungs (rare) Side effects will likely go away shortly after the procedure. Your healthcare team will watch your heart rate and breathing during and after your sedation. This is to help prevent problems. Your own risks may vary. They can be based on your age and your overall health. They also depend onthe type of sedation you are given. Talk with your healthcare provider about the risks that apply most to you. ?? Getting ready for procedural sedation Talk with your provider about how to get ready for your procedure. Tell them about all the medicines you take. This includes oikm-gaz-uppggpk medicines, such as ibuprofen. It also includes vitamins, herbs, and other supplements. You may need to stop taking some medicines before the procedure, such as blood thinners and aspirin. If you smoke, you should stop. This is to lessen the chance of a lungproblem. Talk with your provider if you need help to stop smoking. Tell your provider if you: ??? Have had any problems in the past with sedation or anesthesia ??? Have had any recent changes in your health, such as an infection or fever ??? Are or think you could be Also: ??? Follow any directions you are given for not eating or drinking before procedure. ??? Ask a trusted adult to take you home after the procedure. You can???t drive on the day you have sedation. ??? Ask a trusted adult to stay with you for a few hours while you recover. ??? Don't make any important decisions, such as financial or legal, on the day after you have sedation. ??? Follow all other instructions from your provider. ?? During your procedural sedation You may have your procedure in a hospital or a clinic. Sedation is done by a trained healthcare provider. In general, you can expect the following: ??? You will be given medicine through an IV line in your arm or hand. Or you may get a shot or take it by mouth. Or you may inhale it through a mask. ??? If you have medicine through an IV, you may feel the effects very quickly. You will start to feel relaxed and drowsy. ??? During the procedure, your heart rate, breathing, and blood pressure will be closely watched. Your breathing and blood pressure may decrease a little. But you will likely notneed help with your breathing. You may get a little extra oxygen. This is done through a mask or some soft plastic prongs under your nose. ??? You will likely be awake the whole time. If you do fall asleep, you should be easy to wake up, if needed. You should feel little or no pain. ??? When your procedure is over, the sedative medicine will be stopped. ?? After your procedural sedation You will start to feel more awake and aware. But you will likely be drowsy for a while afterward. You will be closely watched as you become more alert. You may have a faint memory of the procedure. Or you may not remember it at all. You should be able to go home within 1 to 2 hours after your procedure. Plan to have a trusted adult stay with you for a few hours. This person should make sure your condition is not getting worse. They should also watch for problems, and keep you safe. You may have side effects, such as nausea, fatigue, or unsteadiness for up to 24 hours. You may also feel lightheaded. Tell your healthcare provider if they continue. Don???t drive or operate dangerous machines during the next 24 hours. Also, don't make any important business or personal decisions. And don't drink any alcohol during the next 24 hours. Take extra care when walking and moving, You may be at a higher risk of falling. Follow any instructions you were given for eating and drinking. Be sure to follow all after-care directions. ?? When to call your healthcare provider Have someone call your healthcare provider right away if any of the following occur: ??? Drowsinessthat gets worse ??? Weakness or dizziness that gets worse ??? Repeated vomiting ??? Your speech is slurred, and others cannot understand you ??? Severe or ongoing pain from the procedure, not relieved by the pain medicine (if prescribed) ??? Fever of 100.4?? F (38??C) or higher, or as advised by your healthcare provider ??? New rash ?? Call 911 Have someone call 911 if any of the following occur: ??? Trouble breathing ??? Trouble swallowing ??? Chest pain ??? Loss of consciousness or you can't be awakened ?? Last Reviewed Date: 2022 ?? 1902-1313 The [employer]. All rights reserved. This information is not intended as a substitute for professional medical care. Always follow your healthcare professional's instructions. ?? * Mandy BRISENOKaylin: PERFORM Event Display: Patient Education Leaflets Authored Date: [id number] M-Groin I Discharge Instructions ?? 179 Groin Discharge Instructions No heavy lifting over 10 pounds (for example: gallon of milk) 1 week following the procedure; gradually increase normal activity over the next 5 days. Avoid straining/pushing when moving bowels You may feel like resting more after your procedure. Slowly start to do more each day. Rest when you feel it is needed. Make sure to look at your procedure site every day until it is completely healed. You may see bruising at the puncture site and that is common after the procedure. You may shower the day after your procedure. Remove the band aid before showering. Wash the area gently with soap and water. Leave open to air. Do not take tub baths, hot tubs, soaking of the puncture site or swimming for 1 week. Do not put any creams, powders or lotions on your puncture site You may resume sexual activity the day after your procedure; avoid bending the hip on ?? the side of the groin puncture excessively and any strenuous positions for 1 week. Call your doctor if your procedure site develops any of the following: ??? New onset severe pain ??? New onset lump or swelling ??? Bleeding that does not stop with lightpressure ? EKG study * Event Display: ECG 12-Lead Authored Date: Please click on pdf link to open report * Event Display: ECG 12-Lead Authored Date: Ventricular Rate: 58 BPM Atrial Rate: 58 BPM P-R Interval: 150 ms QRS Duration: 106 ms Q-T Interval: 458 ms QTC Calculation(Bazett): 449 ms P [place]: 53 degrees R [place]: 8 degrees T [place]: 22 degrees Sinus bradycardia Otherwise normal ECG When compared with ECG of 05-Oct-2024 09:54, Crireria for LVH are no longer presemt Confirmed by Panfilo Tobin ([id number]) on 10/05/2024 3:48:41 PM [place]: Panfilo Tobin Heart * Event Display: Echocardiogram - Complete Authored Date: [id number] Transthoracic Echocardiography Report (TTE) Patient Demographics Patient Name AMIE CARABALLO Date of Study 10/05/2024 Corporate Gender Female Facility Race Ethnicity Date of 1975 Height: 64 inches Age 49 year(s) Weight: 200.18 pounds Accession Number [id number] BSA: 1.96 m2 Room Number [id number] BMI: 34.36 kg/m2 Referring Physician Mahad Whittaker MD Interpreting Johny Leong MD Physician Inspector Packer Pérez COOPER Dorcas Indications Pericardial effusion. Additional Indications:s/p PFO Closure Clinical History PFO Obesity Study Data Type of Study TTE procedure:Echo 2D Limited or Follow-up, Colorflow, Doppler Follow-up or Limited. Study Date10/05/2024 Start Time: 04:35 PM Study Location: [facility] [place] Study Status: Bedside Patient Status: GAVIN Technical Quality: Poor due to patient supine. Blood Pressure:118/71 mmHg EKG: Normal sinus rhythm HR: 54 bpm Allergies - Mold. - Other allergy:(cadexomer iodine topical, iodine topical). 2D Measurements AO Root Dimension: 3.4 cm LVOT Stroke Volume: 82.07 ml Stroke Volume Index41.87 ml/m2 LVOT: 2.2 cm Cardiac Index:2.26 l/min/m2 Ascending Aorta:2.8 cm Doppler Measurements MV Peak E-Wave: 75 cm/s LVOT Peak Velocity: 91.3 cm/s LVOT VTI21.6 cm E' Septal Velocity: 7.4 cm/s E' Lateral Velocity: 11.2 cm/s E/Med E':10.46206 E/Lat E':6.712174 Cardiac Anatomy Left Ventricle/Interventricular Septum The left ventricle is normal in size, wall thickness and systolic function. The ejection fraction is 55-65%. Cannot assess regional wall motion abnormalities. Left Atrium/Interatrial Septum The left atrium is normal in size. There is a patent foramen ovale (PFO) closure device present. Aortic Valve The aortic valve leaflet opening is normal . There is no aortic stenosis. There is no significant aortic regurgitation. Mitral Valve The mitral valve is grossly normal. There is mild mitral regurgitation. Aorta The aortic root is normal in size. Right Ventricle The right ventricular size and function appears grossly normal. Right Atrium The right atrium is normal in size. Pulmonic Valve The pulmonic valve velocity is normal. There is trace pulmonic regurgitation. Tricuspid Valve There is mild tricuspid valve regurgitation. Pumonary Artery An accurate pulmonary artery pressure could not be obtained. Venous Structures The inferior vena cava appears grossly normal. Pericardium/Extracardiac There is no significant pericardial effusion. Summary The left ventricle is normal in size, wall thickness and systolic function. The ejection fraction is 55-65%. Cannot assess regional wall motion abnormalities. The left atrium is normal in size. There is a patent foramen ovale (PFO) closure device present. The right ventricular size and function appears grossly normal. Comparison Comparison is made to the study of July 13, 2024. Interim placement of a PFO closure device noted. Signature * Event Display: Echocardiogram - Complete Authored Date: Hospital Progress note * Kaylin Galvan RN: PERFORM, SIGN, VERIFY Event Display: Progress Note Hospital Authored Date: Patient: AMIE CARABALLO Age: 49 years Sex: Female : 1975 Associated Diagnoses: None Author: Kaylin Galvan RN Findings Evaluation While going over patients discharge paperwork, she became pale and broke out in a cold sweat. BP 117/78. POC 99. Pt given 2 cups of apple juice and malena crackers. She started feeling better immediately. Dr. Tobin paged and notified. Pt ok to go home. See care unit interactive flowsheets for complete post procedural care. . Patient Care team information Care Team Personnel Name: Divya Echavarria Position: [facility] Office Staff Member Role: Lif[employer] Consulting Physician Name: Mikayla Pena Position: [facility] Outreach Member Role: Lifetime Consulting Physician Name: Pretty Hendrickson MD Position: [facility] Physician - Primary Care Member Role: PCP Address: [address] [place] [address], [address] [place], [place] [address] Telecom: Care Team Related Persons Name: HOLDEN CARABALLO Insurance Providers Guarantor name: AMIE ILYA Health Plan Information #: 1 Payer: HMO [employer] Member Number: [id number] Policy Number: NA Group Number: [id number] Health Plan Information #: 2 Payer: HMO [employer] Member Number: [id number] Policy Number: NA Group Number: [id number]
== END 2024-11-02 16:07 | disposition home or self-care (01) ==
PROVIDERS: PCP Internal Medicine; Visit Provider Hospitalist
DX: R91.1 Solitary pulmonary nodule (principal); J45.40 Moderate persistent asthma, uncomplicated; Q21.10 Atrial septal defect, unspecified; G47.33 Obstructive sleep apnea (adult) (pediatric)
CPT/HCPCS: 99214

== ENCOUNTER 2025-05-31 09:13 | Outpatient (AMB) | payer BC, SELFPAY ==
--- NOTE | 2025-05-31 09:15 | MHC.OFFVIS ---
Vital Signs 05/31/25 09:17 Height 5 ft 4 in Weight 198 lb 6.656 oz BMI 34.1 BP 114/84 Blood Pressure Location Lt brachial Position Sitting Pulse 62 Pulse Source Pulse Oximeter Pulse Oximetry (%) 96 Intake Visit Reasons: COPD Home Visitor [employer] Required: No Accompanied by: Self / Same As Patient Allergies No Known Allergies Allergy (Verified 05/31/25 09:20) HPI Comments Details: The patient is a 50 y/o womanwith a history of asthma in addition to pulmonary nodules. She also has psoriatic arthritis. She has been on multiple medications including methotrexate. But, then decided to come off it due to the abnormal findings in her lungs and also with the family history of pulmonary fibrosis. She continues to have dyspnea on exertion. Moderate in amount. She went to see her primary care doctor and added a long-acting muscarinic antagonist. This has not been helpful yet. She has also been complaining of pleuritic chest discomfort primarily in the left chest area. It is pleuritic in nature moderate in amount. She denies any blood clots history alleged trauma to [place]. Denies any swelling of the legs. We did review her CT scan of the chest that she had in June at [facility] and with his compared to her CT scan from) from 6 months prior. No significant changes in the pulmonary nodule or in the sub solid nodular density found in the left upper lobe. She also had blood work done with a significantly elevated IgE level of about 900. She is not aware of any significant allergy symptoms. However, this may be causing intermittent asthma. 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 She does episodes of exacerbations. She does have a history of psoriatic arthritis. She may be a good candidate for PD4 inhibitor. Recently she did have an echocardiogram which is reassuring with normal RV function and normal PA pressures. Minimal degree of diastolic dysfunction. 10/03/2020 the patient has a telephone visit. She continues to have some difficulty with her breathing and chest tightness. Does not feel like she is getting any significant improvement from the Xolair. Her IgE had been elevated in the past. I do think Dupixent may be a good option for her specially when she can just herself at home and minimize her exposures to COVID-19. She will talk to her county treasurer about this. In the meantime she has underlying pulmonary nodules. We did request a CT scan of the chest but it was denied from her insurance company because was requested to [place]. Therefore will request another CT scan for 3 months from now. Hopefully by then the pandemic would be better. In the meantime she is going to continue with current respiratory regimen. 03/01/2021 the patient has a telephone visit. Since we last spoke the patient has been having for worsening respiratory symptoms consistent with her asthma. She subsequently stop the Xolair because the monthly Xolair did not seem to be effective for her. In addition to that she was approved for Dupixent. She did get the 1st loading dose of Dupixent and she was very hopeful. But, because she has been on other immunosuppressive agents she did back some was stop. Now, her allergy office is doing additional prior approval stay to have her go back on Dupixent. She continues on the Symbicort. In addition to that she has been using her allergy medication. She has required her rescue inhaler regularly almost daily. At this point will try to optimize her respiratory therapy placing her breztri and also will plan to repeat blood work. The patient has gained some weight over this pandemic year and I did explain to her that if she cannot go back on the Dupixent then we should try to maximize her Xolair and hopefully in that case use it every 2 weeks instead of her before. She did have a CT scan of the chest and that we personally reviewed. Her lungs appear to be healthy appearing. She does have a small pulmonary nodule that is calcified in the right upper lung zone. Otherwise she has no other abnormalities noted which is reassuring. Slight dilation and thickening of the airways suggesting some degree of bronchitis. But very minimal. She does have a history of kidney stones and she does have bilateral nephrolithiasis noted. She also has a kidney cyst. Explained to her that CT scan is not a good way to visualize the cysts on her kidneys she should follow up with her specialists regarding a renal ultrasound. 11/06/2021 the patient is here for a pulmonary follow-up visit. Overall the patient has been doing a lot better. 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 She had to call the crisis center because of significant anxiety. She was evaluated and treated both with psychotherapy in medications. The patient finished a partial hospitalization and responded very well to therapy. 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 We did talk about the respirator that she bought. the patient continues to Symbicort. She was started on Spiriva and seems to be tolerating it much better. She continues on Dupixent every 2 weeks. The area switch to getting the injections are painful. However, it is providing some relief. Her psoriasis is also better. 04/22/2023 the patient is here for pulmonary follow-up visit. The patient overall has been doing well. She has not had any recent flare-ups from the asthma. 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 She has been still protecting herself with a mask covering. The patient has not had to use her rescue inhaler. She seems to have responded very well to the Dupixent injections. No need for her rescue inhaler and she continues use her maintenance inhalers as prescribed which include Spiriva and Symbicort. She is in immunosuppressant therapy for her other medical elements. She is up-to-date with her vaccines. Will follow-up in a year's time unless any new issues arise. 05/18/2024 the patient is here for a pulmonary follow-up visit. The patient still complaining of dyspnea on exertion. Although does not feel like his her asthma. she does stay active she goes hiking. A lot of times when she is going up an incline. Moderate severity. She was evaluated from Cardiology and she had an echocardiogram back in July 13 demonstrating a ASD. Was small. I did have a smbyo-ud-dawh shunt. She does have some minimal clubbing. No evidence of any hypoxia when ambulating. She is going to have a repeat echocardiogram ordered by her primary care doctor. She is also having daytime drowsiness. There is a question of sleep apnea. She was order a sleep study which will be done at [facility] as well. On exam she does have some minimal wheezing. We did talk about the importance of using her respiratory inhalers. Will going to go ahead and maximize her respiratory therapy from Symbicort to breztri. Will also request a cardiopulmonary exercise tolerance test to better address her dyspnea symptoms specially with his cardiac issue going on. Will plan to do that at [facility]. In the meantime we are going to maximize respiratory therapy and she will follow-up with her primary care doctor. I did advise her to make sure she follows up with Cardiology specially with her abnormal findings. 11/02/2024 the patient is here for a pulmonary follow-up visit. She continues to have daytime drowsiness. Her Maxatawny score is still elevated 09/13. She did have sleep study over the summer demonstrating mild sleep apnea. In view of her cardiovascular risk factors and her daytime drowsiness the patient needs to start CPAP therapy at this time. Will request a CPAP to be provided by a local [employer] company, [employer]. In the meantime she also did follow-up with Cardiology and she had closure of her PFO. After she started developing some palpitations and some bradycardia. Cardiology is following closely. She did have a repeat echocardiogram with a bubble study and did demonstrate some bubbles getting throat with Valsalva with not at rest. She will talk to Cardiology about the meaning of this test and the results. In the meantime she was supposed to undergo a cardiopulmonary exercise tolerance test. However, she was sick and she was not able to completed. She had to reschedule. At this point though because she is having active cardiac issues and she needs to start CPAP I will have her focus on that and then when she returns we can look into repeating her CPAP study done. She will continue to use her rescue inhaler as needed. She could not get the Breztri covered. I will give her a prescription for airsupra that she can use as needed. 05/31/2025 the patient is here for a pulmonary follow-up visit. Overall she is doing better. She did have the closure of the ASD. Tolerated procedure well. Although, she did develop atrial fibrillation afterwards. She was placed on Eliquis. And now will be having a Holter monitor to make sure that she has a longer in it. Her breathing did get better after the closure of the shunt. Breathing overall has been stable she does have a respiratory inhalers available. Currently just on as needed medications which is good specially with the new history atrial fibrillation. The patient does have a CPAP. She is trying to get used to it. The patient will start using it now more regularly. She understands that is because of his significant cardiovascular risk factors that she should be using it to minimize her cardiovascular risk and risk of arrhythmias. Patient follow-up in 6-8 months. If she has any issues she can always call for further recommendations. [facility] Medical History (Updated 11/02/24 @ 21:39 by Holden Antoine MD) ASD (atrial septal defect) Psoriatic arthritis Immunocompromised patient Pulmonary nodule Psoriasis Asthma Social History Patient Tobacco Use Status: Former Tobacco user Tobacco use type: Cigarette Years Smoked: 20 years Review of Systems Const Reports daytime sleepiness, Denies fever(s), Reports snoring and Reports weight gain Eyes Denies change in vision ENT Denies change in voice, Reports dizziness, Denies lip swelling, Denies mouth pain, Reports nasal congestion, Reports nasal discharge and Denies tongue swelling Card Denies chest pain, Reports palpitations, Denies dyspnea and Reports dyspnea on exertion Resp Reports cough, Denies dyspnea, Reports dyspnea on exertion, Reports snoring and Denies wheezing GI Denies abdominal pain Musc Denies no additional complaints, Reports back pain and Reports myalgias Neuro Denies Neuro-related abnormal movements and Reports dizziness Psych Denies no additional complaints Endo Reports palpitations Rodolfo/Lymph Denies easy bleeding and Denies lymphadenopathy Aller/Immun Denies lip swelling, Denies tongue swelling and Denies wheezing Physical Exam Vital Signs: Last Vital Signs Pulse 62 05/31/25 09:17 BP 114/84 05/31/25 09:17 Pulse Ox 96 05/31/25 09:17 BMI result Body Mass Index 34.1 Const General: alert Neck Neck: Yes normal visual inspection, Yes full ROM and Yes no lymphadenopathy Chest Chest palpation & inspection: normal inspection of the chest Resp Auscultation: no rales, no rhonchi and diminished lung sounds Cardio Rate: regular rate Rhythm: regular rhythm Heart sounds: S1 normal heart sound present and S2 normal heart sound present GI Palpation (GI): Soft to palpation and nontender Auscultation: normal bowel sounds Skin General skin exam: rashes and/or lesions noted Extrem General: Yes clubbing, No cyanosis and No edema Assessment & Plan Assessment & Plan (1) Pulmonary nodule: Code(s): R91.1 - Solitary pulmonary nodule Category: Medical (2) Asthma: Code(s): J45.909 - Unspecified asthma, uncomplicated Category: Medical Qualifiers: Asthma complication type: uncomplicated Asthma persistence: persistent Asthma severity: moderate Qualified Code(s): J45.40 - Moderate persistent asthma, uncomplicated (3) ASD (atrial septal defect): Code(s): Q21.10 - Atrial septal defect, unspecified Category: Medical (4) HARLEEN (obstructive sleep apnea): Code(s): G47.33 - Obstructive sleep apnea (adult) (pediatric) Category: Medical Plan continue Airsupra as needed ERVIN as needed continue APAP therapy for HARLEEN, needs to use it due to her increased cardiovascular risk. She understands and will start using it >4 hours/day F/U with cardiology to f/u holter for Afib F/U 6-8 months Coding Level of Care Code Est Pt Level 4 (66928) Complex EM visit Add On G2211 Diagnoses Pulmonary nodule R91.1 Moderate persistent asthma without complication J45.40 Asthma complication type: uncomplicated Asthma persistence: persistent Asthma severity: moderate ASD (atrial septal defect) Q21.10 HARLEEN (obstructive sleep apnea) G47.33 Time Spent (min) 17
[2025-05-31 09:17] VITALS: BP 114/84; PULSE 62; O2SAT 96; BMI 34.1
--- OUTSIDE RECORDS SUMMARY | 2025-05-31 09:40 | XMS_ITS | Encounter Summary ---
Author Organization [facility], Address [address] [place] [address] Phone Care Team Providers Care Equipment Engineering Technician Name Role Phone Stevie Hendrickson MD Primary Care Provider [phone] Encounter Details Date Type Department Care Team (Late st Contact Info) Description 07/09/2022 Documentation Only [facility], [address] [place] [address] Joel Gregorio MD [address] [place] [address] [place] [phone] Social History Tobacco Use Types Packs/Day Years Used Date Smoking Tobacco: Former Cigarettes Q uit: 04/20/2013 Comments:Smoking History Inf o:Every day Alcohol Use Standard Drinks/Week Comments No 0 (1 standard drink = 0.6 oz pur e alcohol) Comments Unknown Sex and Gender Information Value Date Recorded Sex Assigned at Not on file Legal Sex Female 4:37 PM EST Gender Identity Not on file Sexual Orientation Not on file documented as of this encounter Plan of Treatment Not on file documented as of this encounter Visit Diagnoses Not on filedocumented in this encounter Care Teams Equipment Engineering Technician Relationship Specialty Start Date End Date Stevie Hendrickson MD [address] [facility] [address] [place], [place] PCP - General Internal Medicine 11/28/22 documented as of this encounter
--- OUTSIDE RECORDS SUMMARY | 2025-05-31 09:40 | XMS_ITS | Clinical Summary ---
Author Organization [address] Address [address] [place] [address] Phone Care Team Providers Care Software Programmer Name Role Phone Margo Kirstin HENSON Primary Care Provider [phone] Surgical History Surgery Date Site/Laterality Comments NECK SURGERY PROCEDURE: HISTORICAL NECK SURGERY; COMMENT: benign lymph node excised, left post cervical OTHER SURGICAL HISTORY PROCEDURE: CERVICAL BIOPSY [facility] PATHOLOGY EXAM; COMMENT: cryosurgery, age 17 ESOPHAGOGASTRODUODENOSCOPY 04/18/2009 PROCEDURE: [place] ESOPHAGOGASTRODUODENOSCOPY TRANSORAL DIAGNOSTIC; COMMENT: Normal Medical History Medical History Date Comments Goiter, unspecified DX:Goiter, u nspecified Unspecified asthma(493.90) DX:Un specified asthma(493.90); COMMENT: Extremely mild and intermittent. 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 LBP, pubic, coccyx pains in mid 2014. Sacroiliitis on MRI 10/04. Spondyloarthropathy 11/01/2015 DX:Spondyloa rthropathy; COMMENT: Hx Psoriasis since teens. LBP, pubic, coccyx pains in mid 2014. Sacroiliitis on MRI 10/04. Enbrel started 11/05 Methotrexate added 03/[address] of Enbrel 04/05-06/05 - less or a response so put back on Enbrel 06/[address] of Enbrel April 2018: Methotrexate continued. Methotrexate stopped - exertional dyspnea Anxiety 07/14/2020 DX:Anxiety Family History Medical History Relation Name Comments Hypertension Father Stroke Father Diabetes Maternal Grandfather Coronary artery disease Maternal Grandmother Stroke Maternal Grandmother Arthritis Mother hx of RA, OA an d a neuropathy Hypertension Mother Parkinson's syn drome, thyroid Other cancer Paternal Grandfather gall bl adder, Relation Name Status Comments Father Maternal Grandfather Maternal Grandmother Mother Alive Paternal Grandfather Sister Alive thyroid Social History Tobacco Use Types Packs/Day Years Used Date Smoking Tobacco: Former Cigarettes Q uit: 04/20/2013 Smokeless Tobacco: Never Alcohol Use Standard Drinks/Week Comments No 0 (1 standard drink = 0.6 oz pur e alcohol) Comments Unknown Sex and Gender Information Value Date Recorded Sex Assigned at Not on file Legal Sex Female 5:21 AM EST Gender Identity Not on file Sexual Orientation Not on file Obstetrics History Last Filed Vital Signs Vital Sign Reading Time Taken Comments Blood Pressure 107/79 12/25/2021 4:03 PM EST Pulse 78 12/25/2021 4:03 PM EST Temperature - - Respiratory Rate - - Oxygen Saturation - - Inhaled Oxygen Concentration - - Weight 76.2 kg (168 lb) 12/25/2021 4:03 PM EST Height 165.1 cm (5' 5 ) 12/25/2021 4:03 PM EST Body Mass Index 27.96 12/25/2021 4:03 PM EST Plan of Treatment Health Maintenance Due Date Last Done Comments Breast Cancer Screening 1974 Hepatitis B Vaccines (1 of 3 - 19+ 3-dose series) 1993 Cervical Cancer Screening: Pap Smear 1995 DTaP,Tdap,and Td Vaccines (2 - Td or Tdap) 02/10/2020 02/09/2010 Cholesterol Screening (Lipid Panel) 09/29/2022 Colorectal Cancer Screening: Colonoscopy 09/29/2022 HIV Screening 09/29/2022 Hepatitis C Screening 09/29/2022 Social Influencers of Health Screening 09/29/2022 Hypertension/CHF/CAD Annual BMP Blood Test 09/30/2022 Zoster Vaccines (1 of 2) 2024 COVID-19 Vaccine (5 - season) 2024 11/04/2021, 05/28/2021, 12/19/2020, Additional history exists Depression Screening 10/21/2024 Influenza Vaccine (#1) 2025 , 06/23/2020, 08/12/2019, Additional history exists Pneumococcal Vaccine: 50+ Years (3 of 3 - PCV20 or PCV21) 06/23/2025 06/23/2020, 11/01/2015, 08/31/2008 Meningococcal ACWY Vaccine Aged Out 11/01/2015 N o longer eligible based on patient's age to complete this topic HIB Vaccines Aged Out No longer eligi ble based on patient's age to complete this topic HPV Vaccines Aged Out No longer eligi ble based on patient's age to complete this topic Hepatitis A Vaccines Aged Out No long er eligible based on patient's age to complete this topic IPV Vaccines Aged Out No longer eligi ble based on patient's age to complete this topic MMR Vaccines Aged Out No longer eligi ble based on patient's age to complete this topic Meningococcal B Vaccine Aged Out No l onger eligible based on patient's age to complete this topic RSV Immunization Patients Under 20 months Aged Out No longer eligible based on patient's age to complete this topic Varicella Vaccines Aged Out No longer eligible based on patient's age to complete this topic Insurance [facility] Care Teams Software Programmer Relationship Specialty Start Date End Date Kirstin Aragon PA [address] [place] [address] [address] [place] [address] PCP - General 04/02/25
--- OUTSIDE RECORDS SUMMARY | 2025-05-31 09:40 | XMS_ITS | Clinical Summary ---
Author Organization [facility] Address [address] [place] [address] Phone Care Team Providers Care Instrumentation Tech Name Role Phone Chelsea Urena MD Primary Care Pr ovider Aroldo Dunn MD, MPH Unavailable [phone] Medications secukinumab (COSENTYX) 150 mg/mL Syrg Inject 300 mg under the skin every 28 days. Active gabapentin (NEURONTIN) 100 MG capsule Take 200 mg by mouth 2 (two) times a day. 200 mg in AM and 400 mg at night Active amitriptyline (ELAVIL) 10 MG tablet Take 10 mg by mouth nightly at bedtime as needed (insomnia). Active montelukast (SINGULAIR) 10 mg tablet Take 10 mg by mouth nightly at bedtime. Active budesonide-form oterol (SYMBICORT) 160-4.5 mcg/actuation inhaler Inhale 2 puffs into the lungs 2 (two) times a day. Active lisinopril-hydr oCHLOROthiazide (PRINZIDE,ZESTO RETIC) 20-12.5 mg per tablet Take 1 tablet by mouth daily. Active tiotropium (SPIRIVA HANDIHALER) 18 mcg inhalation capsule Inhale 18 mcg into the lungs daily. Active potassium chloride (KLOR-CON) 10 MEQ ER tablet Take 10 mEq by mouth 3 (three) times a day. Active albuterol 90 mcg/actuation inhaler Inhale 2 puffs into the lungs every 6 (six) hours as needed for wheezing. Active Active Problems Problem Noted Date Diagnosed Date Hypertension Psoriatic arthritis Overview (02/19/2020): on consentyx Cervical cancer Overview (02/19/2020): s/p laser surgery Asthma Overview (02/19/2020): recurrent PNA as a child, nothing in adulthood Nephrolithiasis Family History Medical History Relation Comments Heart attack Maternal Grandmother Idiopathic pulmonary fibrosis Mother Cancer Paternal Grandfather gallbladder Relation Status Comments Maternal Grandmother Mother Paternal Grandfather Social History Tobacco Use Types Packs/Day Years Used Date Smoking Tobacco: Former Cigarettes 0.8 23 Smokeless Tobacco: Never Comments:quit in 2013 Alcohol Use Standard Drinks/Week Comments Yes 0 (1 standard drink = 0.6 oz pur e alcohol) Education Answer Date Recorded Are you interested in more education? Not on jerod e 02/15/2023 Are you concerned about learning? Not on file 02/15/2023 No 02/15/2023 No 02/15/2023 Digital Access Answer Date Recorded No 03/16/2023 No 03/16/2023 Reliable internet access at home? Not on file 03/16/2023 Device with a working camera? 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 Not on file Not on file Plan of Treatment Health Maintenance Due Date Last Done Comments BLOOD PRESSURE 1974 CREATININE LEVEL 1974 LIPID PANEL 1974 POTASSIUM LEVEL 1974 DEPRESSION SCREENING 1986 SMOKING Hx and SMOKELESS TOBACCO SCREENING 1987 HEPATITIS C SCREENING 1992 HIV ONE-TIME SCREENING (18-6 5 YEARS) 1992 ZOSTER VACCINES (1 of 2) 1993 PAP SMEAR 1995 MAMMOGRAM 2014 COLOGUARD 2019 COLONOSCOPY 2019 COLORECTAL CANCER SCREENING 2019 FIT TEST 2019 FOBT 2019 SIGMOIDOSCOPY 2019 VIRTUAL COLONOSCOPY 2019 Adult Td,Tdap Booster 02/10/2020 02/09/2010 COVID-19 VACCINE (3 - 2023-2 5 season) 2024 12/19/2020, 11/21/2020 PNEUMOCOCCAL VACCINES (50+ years) (4 of 4 - PCV20 or PCV21) 06/23/2025 06/23/2020, 11/01/2015, 08/31/2008 MENINGOCOCCAL VACCINES (ACWY) Aged Out 11/01/2015 No longer eligible based on patient's age to complete this topic HEPATITIS A VACCINES Aged Out No long er eligible based on patient's age to complete this topic HIB VACCINES Aged Out No longer eligi ble based on patient's age to complete this topic MENINGOCOCCAL VACCINES (B) Aged Out N o longer eligible based on patient's age to complete this topic Medical Devices Not on file Insurance O POS HMO POS HMO POS HMO POS HMO POS HMO POS O POS HMO POS O POS Care Teams Instrumentation Tech Relationship Specialty Start Date End Date Chelsea Urena MD [address] [place] [id number] PCP - General Internal Medicine 11/24/19 Aroldo Dunn MD, MPH [address] [place] [id number] [email or web address] Referring Physician Pulmonary Disease 01/29/20 Additional Source Comments The information contained in this document represents components of the legal health record. It is not the complete legal health record.[facility]
--- OUTSIDE RECORDS SUMMARY | 2025-05-31 09:40 | XMS_ITS ---
Author Name [facility] Organization Unknown Care Team Organization Name Specialty Phone Email Start Date End Da [facility] MYKEL DAWN Primary Care 08/28/2022 06/08/2024
== END 2025-05-31 09:45 | disposition home or self-care (01) ==
LOC: HO.HPS 09:14
PROVIDERS: PCP Internal Medicine; Visit Provider Hospitalist
DX: R91.1 Solitary pulmonary nodule (principal); J45.40 Moderate persistent asthma, uncomplicated; Q21.10 Atrial septal defect, unspecified; G47.33 Obstructive sleep apnea (adult) (pediatric)
CPT/HCPCS: 99214